=== PATIENT | male | born 1960 | race American Indian/Alaskan Native ===

== ENCOUNTER 2016-10-27 17:22 | Emergency (ER) | payer SELFPAY ==
[2016-10-27 18:35] LABS: Basophils % (Auto) 0.8 % (0.0-1.8); Eosinophils % (Auto) 1.5 % (0.0-4.3); Hematocrit 45.9 % (35.5-45.6); Hemoglobin 15.1 gm/dl (11.8-15.2); Mean Corpuscular HGB Conc 33 % (32-34); Mean Corpuscular Hemoglobin 33 pg (28-32); Mean Corpuscular Volume 99 fl (84-94); Platelet Count 261 K/mm3 (140-440); Red Blood Count 4.66 M/mm3 (3.65-5.03); Red Cell Distribution Width 13.5 % (13.2-15.2); White Blood Count 10.7 K/mm3 (4.5-11.0)
[2016-10-27 18:55] LABS: Anion Gap 20 mmol/L; BUN/Creatinine Ratio 17.27; Blood Urea Nitrogen 19 mg/dL (9-20); Calcium 9.8 mg/dL (8.4-10.2); Carbon Dioxide 29 mmol/L (22-30); Chloride 99.5 mmol/L (98-107); Glucose 118 mg/dL (75-100); Potassium 4.6 mmol/L (3.6-5.0); Sodium 144 mmol/L (137-145)
[2016-10-27] MEDS ORDERED: APRESOLINE PO ONE (21:41)
--- NOTE | 2016-10-27 21:47 | Emergency Department Report ---
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 , pt denies symptoms, no headache no dizziness no lightheadedness no cp no sob, last bp meds 3 days ago Onset/Timin (chronic htn) -: year(s) Improves with: other (hctz, lopressor, asa, lisinopril) - Related Data Home Medications Medication Instructions Recorded Confirmed Last Taken Aspirin [Adult Low Dose Aspirin EC] 81 mg PO DAILY 10/27/16 10/27/16 3 Days Ago Hydrochlorothiazide [HCTZ] 25 mg PO QDAY 10/27/16 10/27/16 3 Days Ago Lisinopril [Zestril TAB] 10 mg PO QDAY 10/27/16 10/27/16 3 Days Ago Metoprolol [Lopressor] 25 mg PO BID 10/27/16 10/27/16 3 Days Ago Allergies Allergy/AdvReac Type Severity Reaction Status Date / Time No Known Allergies Allergy Verified 10/27/16 18:18 ED Review of Systems ROS: Stated complaint: HBP Other details as noted in HPI Constitutional: denies: chills, fever Eyes: denies: eye pain, eye discharge, vision change ENT: denies: ear pain, throat pain Respiratory: denies: cough, shortness of breath, wheezing Cardiovascular: denies: chest pain, palpitations, dyspnea on exertion, orthopnea , edema, syncope, paroxysmal nocturnal dyspnea Endocrine: no symptoms reported Gastrointestinal: denies: abdominal pain, nausea, diarrhea Genitourinary: denies: urgency, dysuria Musculoskeletal: denies: back pain, joint swelling, arthralgia Skin: denies: rash, lesions Neurological: denies: headache, weakness, paresthesias Psychiatric: denies: anxiety, depression Hematological/Lymphatic: denies: easy bleeding, easy bruising ED Past Medical Hx - Past Medical History Previous Medical History?: Yes Hx Hypertension: Yes - Surgical History Past Surgical History?: No Additional Surgical History: appendectomy, hip replacement - Social History Smoking Status: Current Some Day Smoker Substance Use Type: Alcohol - Medications Home Medications: Home Medications Medication Instructions Recorded Confirmed Last Taken Type Aspirin [Adult Low Dose Aspirin EC] 81 mg PO DAILY 10/27/16 10/27/16 3 Days Ago History Hydrochlorothiazide [HCTZ] 25 mg PO QDAY 10/27/16 10/27/16 3 Days Ago History Lisinopril [Zestril TAB] 10 mg PO QDAY 10/27/16 10/27/16 3 Days Ago History Metoprolol [Lopressor] 25 mg PO BID 10/27/16 10/27/16 3 Days Ago History ED Physical Exam - General Limitations: No Limitations General appearance: alert, in no apparent distress - Head Head exam: Present: atraumatic, normocephalic - Eye Eye exam: Present: normal appearance, PERRL, EOMI Pupils: Present: normal accommodation - ENT ENT exam: Present: mucous membranes moist - Neck Neck exam: Present: normal inspection - Respiratory Respiratory exam: Present: normal lung sounds bilaterally. Absent: respiratory distress, wheezes, rhonchi, stridor, chest wall tenderness, decreased breath sounds - Cardiovascular Cardiovascular Exam: Present: regular rate, normal rhythm, normal heart sounds. Absent: systolic murmur, diastolic murmur, rubs, gallop, clicks, JVD - GI/Abdominal GI/Abdominal exam: Present: soft, normal bowel sounds. Absent: tenderness, guarding, rebound, bruit, hernia - Rectal Rectal exam: Present: deferred - Extremities Exam Extremities exam: Present: normal inspection, full ROM. Absent: tenderness, normal capillary refill, pedal edema, joint swelling, calf tenderness - Back Exam Back exam: Present: normal inspection, full ROM, tenderness. Absent: CVA tenderness (R), CVA tenderness (L) - Neurological Exam Neurological exam: Present: alert, oriented X3, CN II-XII intact, normal gait, reflexes normal - Psychiatric Psychiatric exam: Present: normal affect, normal mood - Skin Skin exam: Present: warm, dry, intact, normal color. Absent: cyanosis, diaphoretic, pallor ED Course Vital Signs 10/27/16 10/27/16 10/27/16 18:10 21:32 21:54 Temperature 98.1 F Pulse Rate 79 77 Respiratory 16 20 Rate Blood Pressure 186/111 181/103 Blood Pressure 181/103 [Right] O2 Sat by Pulse 94 94 Oximetry ED Medical Decision Making - Lab Data Result diagrams: 10/27/16 18:24 10/27/16 18:24 Laboratory Tests 10/27/16 10/27/16 18:24 18:24 WBC 10.7 RBC 4.66 Hgb 15.1 Hct 45.9 H MCV 99 H MCH 33 H MCHC 33 RDW 13.5 Plt Count 261 Lymph % (Auto) 24.9 Leon % (Auto) 10.4 H Eos % (Auto) 1.5 Baso % (Auto) 0.8 Lymph # 2.7 Leon # 1.1 H Eos # 0.2 Baso # 0.1 Seg Neutrophils % 62.4 Seg Neutrophils # 6.7 Sodium 144 Potassium 4.6 Chloride 99.5 Carbon Dioxide 29 Anion Gap 20 BUN 19 Creatinine 1.1 Estimated GFR > 60 BUN/Creatinine Ratio 17.27 Glucose 118 H Calcium 9.8 Troponin T < 0.010 - EKG Data EKG shows normal: sinus rhythm Rate: normal - EKG Data When compared to previous EKG there are: no significant change Interpretation: no acute changes, LVH (no change from EKG 03/2012) - Medical Decision Making pt is a 56 y/o aam with hx of HTN, Obesity former smoker who presents on referral from Office during DOT physical for htn, pt denies symptoms at this time, no headache no dizziness no lightheadedness no cp, no sob pt is ambulatory gait is steady with nad , exam: pt appears obese , stated age, with nad lungs clear bilat all lobes no wheezing no CAVANAUGH, cv: S1 and S2 no MRG no PND no edema, no jvd diagnostics : SR with LVH at baseline of 03/2012, CMP: Cr: 1.1 , CBC: wnl, Trop: 0.010 N. [place] Heart Score: 3 low risk, plan: Hydralazine 50 mg po x 1, repeat bp, if bp reduced , will dc to home pt advises that he has all medications in his possession at home, pt has good follow up at [facility], will follow up in 1 week with Primary Care Doctor, pt given strict instructions to return to emergency if symptoms occur , worsen, or cp or sob develops pt verbalized understanding and agreement with discharge plan. BP currently trending downward pt denies symptoms currently a/o x 3 ambulatory gait steady pt will follow up with primary care as directed at [place] , take all medications as rx for bp , take medications upon arrival to home tonight, pt verabalized agreement and understanding of discharge plan. Critical care attestation.: If time is entered above; I have spent that time in minutes in the direct care of this critically ill patient, excluding procedure time. ED Disposition Clinical Impression: HTN (hypertension) Qualifiers: Hypertension type: essential hypertension Qualified Code(s): I10 - Essential ( primary) hypertension Disposition: - TO HOME OR SELFCARE Is pt being admited?: No Does the pt Need Aspirin: No Condition: Good Instructions: Hypertension (ED) Referrals: PRIMARY CARE, [Primary Care Provider] - 3-5 Days Forms: Work/School Release Form(ED) Time of Disposition: 22:14
[2016-10-27 22:30] VITALS: BP 133/94
== END 2016-10-27 22:30 | disposition home or self-care (01) ==
LOC: ED 17:22
DX: I10 Essential (primary) hypertension (principal); F17.200 Nicotine dependence, unspecified, uncomplicated; Z79.82 Long term (current) use of aspirin; Z98.890 Other specified postprocedural states
CPT/HCPCS: 36415; 80048; 84484; 85025; 93005; 93010; 99284

== ENCOUNTER 2017-02-10 08:42 | Inpatient (IN) | payer OTHER ==
[2017-02-10 09:22] LABS: Basophils % (Auto) 1.2 % (0.0-1.8); Eosinophils % (Auto) 1.7 % (0.0-4.3); Hematocrit 43.3 % (35.5-45.6); Hemoglobin 14.7 gm/dl (11.8-15.2); Mean Corpuscular HGB Conc 34 % (32-34); Mean Corpuscular Hemoglobin 33 pg (28-32); Mean Corpuscular Volume 98 fl (84-94); Platelet Count 245 K/mm3 (140-440); Red Blood Count 4.42 M/mm3 (3.65-5.03); Red Cell Distribution Width 13.2 % (13.2-15.2); White Blood Count 7.4 K/mm3 (4.5-11.0)
[2017-02-10 09:32] LABS: INR 0.91 (0.87-1.13)
[2017-02-10 09:33] LABS: Partial Thromboplastin Time 25.9 Sec. (24.2-36.6)
[2017-02-10 09:41] LABS: Anion Gap 19 mmol/L; Blood Urea Nitrogen 14 mg/dL (9-20); Calcium 8.8 mg/dL (8.4-10.2); Carbon Dioxide 28 mmol/L (22-30); Glucose 99 mg/dL (75-100); Sodium 144 mmol/L (137-145)
--- NOTE | 2017-02-10 10:25 | XRay Report ---
CHEST TWO VIEWS: 02/10/17 08:42:00 CLINICAL: Shortness of breath. COMPARISON: 09/08/11 FINDINGS: The heart is large. Mild central vascular congestion. Mild bilateral basal interstitial opacities. No pulmonary consolidation. No pleural effusion. Degenerative change in the spine. IMPRESSION: Mild CHF.
[2017-02-10] MEDS ORDERED: LOVENOX SUB-Q ONE (10:26)
--- NOTE | 2017-02-10 10:27 | Emergency Department Report ---
ED General Adult HPI - General Chief complaint: Dyspnea/Respdistress Stated complaint: MARCO A Time Seen by Provider: 02/10/17 10:10 Source: patient, RN notes reviewed Mode of arrival: Ambulatory Limitations: No Limitations - History of Present Illness Initial comments: This is a 56-year-old male who was previously unknown to this provider. He has a past medical history of hypertension. He presents to the ER with shortness of breath, contrary to what is documented in triage nurse documentation, he has no chest pain. Patient endorses chronic lower extremity swelling which is not a new, worsening or different, he has chronic orthopnea which is not new worsened or different. There is no hematemesis or bright red blood per rectum, no recent trips greater than 4 hours, no recent hospital admissions. Patient does admit to going on an alcohol binge last week, he is currently not homicidal or suicidal. -: Gradual Severity scale (0 -10): 0 Consistency: constant Improves with: rest Worsens with: movement Associated Symptoms: loss of appetite, weakness. denies: chest pain - Related Data Home Medications Medication Instructions Recorded Confirmed Last Taken Aspirin [Adult Low Dose Aspirin EC] 81 mg PO DAILY 10/27/16 10/27/16 3 Days Ago Hydrochlorothiazide [HCTZ] 25 mg PO QDAY 10/27/16 10/27/16 3 Days Ago Lisinopril [Zestril TAB] 10 mg PO QDAY 10/27/16 10/27/16 3 Days Ago Metoprolol [Lopressor] 25 mg PO BID 10/27/16 10/27/16 3 Days Ago Allergies Allergy/AdvReac Type Severity Reaction Status Date / Time No Known Allergies Allergy Verified 02/10/17 10:28 ED Review of Systems ROS: Stated complaint: MARCO A Other details as noted in HPI Constitutional: malaise, weakness Eyes: denies: vision change Respiratory: shortness of breath Cardiovascular: edema Gastrointestinal: denies: vomiting, hematemesis, melena, hematochezia Genitourinary: denies: dysuria Musculoskeletal: arthralgia, myalgia Skin: denies: lesions Neurological: weakness Psychiatric: denies: homicidal thoughts, suicidal thoughts ED Past Medical Hx - Past Medical History Previous Medical History?: Yes Hx Hypertension: Yes - Surgical History Past Surgical History?: Yes Hx Appendectomy: Yes Additional Surgical History: appendectomy, hilario hip replacement - Social History Smoking Status: Current Every Day Smoker Substance Use Type: Alcohol, Prescribed - Medications Home Medications: Home Medications Medication Instructions Recorded Confirmed Last Taken Type Aspirin [Adult Low Dose Aspirin EC] 81 mg PO DAILY 10/27/16 10/27/16 3 Days Ago History Hydrochlorothiazide [HCTZ] 25 mg PO QDAY 10/27/16 10/27/16 3 Days Ago History Lisinopril [Zestril TAB] 10 mg PO QDAY 10/27/16 10/27/16 3 Days Ago History Metoprolol [Lopressor] 25 mg PO BID 10/27/16 10/27/16 3 Days Ago History ED Physical Exam - General Limitations: No Limitations General appearance: alert, in no apparent distress - Head Head exam: Present: atraumatic, normocephalic - Eye Eye exam: Present: normal appearance, EOMI - ENT ENT exam: Present: normal exam, normal orophraynx, mucous membranes moist, normal external ear exam - Neck Neck exam: Present: normal inspection, full ROM - Respiratory Respiratory exam: Present: normal lung sounds bilaterally. Absent: respiratory distress, wheezes, rales, rhonchi, stridor - Cardiovascular Cardiovascular Exam: Present: tachycardia, irregular rhythm. Absent: systolic murmur, diastolic murmur, rubs, gallop - GI/Abdominal GI/Abdominal exam: Present: soft, normal bowel sounds. Absent: distended, tenderness, guarding, rebound, rigid, pulsatile mass - Rectal Rectal exam: Present: deferred - Extremities Exam Extremities exam: Present: normal inspection, normal capillary refill, pedal edema. Absent: calf tenderness - Back Exam Back exam: Present: normal inspection. Absent: full ROM, tenderness - Neurological Exam Neurological exam: Present: alert, oriented X3, normal gait, other (Extraocular movements intact. Tongue midline. No facial droop. Facial sensation intact to light touch in the V1, V2, V3 distribution bilaterally. 5 and 5 strength in 4 extremities.. Sensation is intact to light touch in 4 extremities.). Absent : motor sensory deficit - Psychiatric Psychiatric exam: Present: normal affect, normal mood - Skin Skin exam: Present: warm, dry, intact, normal color. Absent: rash ED Course Vital Signs 02/10/17 02/10/17 02/10/17 08:53 09:30 10:05 Temperature 97.5 F L Pulse Rate 66 64 139 H Respiratory 18 20 27 H Rate Blood Pressure 153/87 O2 Sat by Pulse 94 94 Oximetry 02/10/17 02/10/17 02/10/17 10:16 10:30 10:46 Temperature Pulse Rate 152 H 116 H 118 H Respiratory 15 19 21 Rate Blood Pressure 140/107 140/107 167/94 O2 Sat by Pulse 96 91 93 Oximetry 02/10/17 02/10/17 02/10/17 11:00 11:16 11:18 Temperature Pulse Rate 158 H 126 H 150 H Respiratory 18 17 Rate Blood Pressure 167/94 176/126 177/112 O2 Sat by Pulse 97 91 Oximetry 02/10/17 02/10/17 02/10/17 11:30 11:46 12:10 Temperature Pulse Rate 88 102 H 101 H Respiratory 13 16 Rate Blood Pressure 139/85 177/112 190/96 O2 Sat by Pulse 96 91 Oximetry 02/10/17 12:24 Temperature Pulse Rate Respiratory 24 Rate Blood Pressure O2 Sat by Pulse 95 Oximetry ED Medical Decision Making - Lab Data Result diagrams: 02/10/17 09:05 02/10/17 09:05 Vital Signs 02/10/17 02/10/17 08:53 09:30 Temperature 97.5 F L Pulse Rate 66 64 Respiratory 18 20 Rate Blood Pressure 153/87 O2 Sat by Pulse 94 94 Oximetry Lab Results 02/10/17 02/10/17 02/10/17 Range/Units 09:05 09:05 09:05 WBC 7.4 (4.5-11.0) K/mm3 RBC 4.42 (3.65-5.03) M/mm3 Hgb 14.7 (11.8-15.2) gm/dl Hct 43.3 (35.5-45.6) % MCV 98 H (84-94) fl MCH 33 H (28-32) pg MCHC 34 (32-34) % RDW 13.2 (13.2-15.2) % Plt Count 245 (140-440) K/mm3 Lymph % (Auto) 39.9 H (13.4-35.0) % [place] % (Auto) 9.1 H (0.0-7.3) % Eos % (Auto) 1.7 (0.0-4.3) % Baso % (Auto) 1.2 (0.0-1.8) % Lymph # 3.0 (1.2-5.4) K/mm3 [place] # 0.7 (0.0-0.8) K/mm3 Eos # 0.1 (0.0-0.4) K/mm3 Baso # 0.1 (0.0-0.1) K/mm3 Seg Neutrophils % 48.1 (40.0-70.0) % Seg Neutrophils # 3.6 (1.8-7.7) K/mm3 PT 12.7 (12.2-14.9) Sec. INR 0.91 (0.87-1.13) APTT 25.9 (24.2-36.6) Sec. Sodium 144 (137-145) mmol/L Potassium 4.0 (3.6-5.0) mmol/L Chloride 101.0 (98-107) mmol/L Carbon Dioxide 28 (22-30) mmol/L Anion Gap 19 mmol/L BUN 14 (9-20) mg/dL Creatinine 0.7 L (0.8-1.5) mg/dL Estimated GFR > 60 ml/min BUN/Creatinine Ratio 20.00 % Glucose 99 (75-100) mg/dL Calcium 8.8 (8.4-10.2) mg/dL Magnesium (1.7-2.3) mg/dL Troponin T < 0.010 (0.00-0.029) ng/mL NT-Pro-B Natriuret Pep (0-900) pg/mL 02/10/17 02/10/17 Range/Units 09:05 10:38 WBC (4.5-11.0) K/mm3 RBC (3.65-5.03) M/mm3 Hgb (11.8-15.2) gm/dl Hct (35.5-45.6) % MCV (84-94) fl MCH (28-32) pg MCHC (32-34) % RDW (13.2-15.2) % Plt Count (140-440) K/mm3 Lymph % (Auto) (13.4-35.0) % [place] % (Auto) (0.0-7.3) % Eos % (Auto) (0.0-4.3) % Baso % (Auto) (0.0-1.8) % Lymph # (1.2-5.4) K/mm3 [place] # (0.0-0.8) K/mm3 Eos # (0.0-0.4) K/mm3 Baso # (0.0-0.1) K/mm3 Seg Neutrophils % (40.0-70.0) % Seg Neutrophils # (1.8-7.7) K/mm3 PT (12.2-14.9) Sec. INR (0.87-1.13) APTT (24.2-36.6) Sec. Sodium (137-145) mmol/L Potassium (3.6-5.0) mmol/L Chloride (98-107) mmol/L Carbon Dioxide (22-30) mmol/L Anion Gap mmol/L BUN (9-20) mg/dL Creatinine (0.8-1.5) mg/dL Estimated GFR ml/min BUN/Creatinine Ratio % Glucose (75-100) mg/dL Calcium (8.4-10.2) mg/dL Magnesium 1.80 (1.7-2.3) mg/dL Troponin T (0.00-0.029) ng/mL NT-Pro-B Natriuret Pep 302.4 (0-900) pg/mL - EKG Data -: EKG Interpreted by N[place] - EKG Data 02/10/17 12:00 EKG #1 demonstrates A. fib with RVR, 111 bpm, left bundle branch block, not morphologically consistent with STEMI. Repeat EKG after diltiazem demonstrates a flutter, variable conduction, borderline left axis, persistent left bundle branch block, not morphologically consistent with STEMI. - Radiology Data Radiology results: report reviewed, image reviewed X-ray of the chest demonstrates cardiomegaly, mild pulmonary vascular congestion , possible early CHF - Medical Decision Making Differential diagnosis: Atrial flutter, atrial fibrillation, congestive heart failure, pulmonary hypertension, obstructive sleep apnea Assessment and plan: 56-year-old male, obese, chronic orthopnea, most likely has undiagnosed pulmonary hypertension, obstructive sleep apnea, obesity hypoventilation syndrome, went on an alcohol binge last week, now with new- onset A. fib/flutter. Rate initially variable from 111 to 150s, he is given 15 mg of diltiazem IV, successfully slowed his rate, then 30 mg by mouth. He is given Lovenox 1 mg/kg subcutaneously, Lasix, there are no pulmonary embolus or DVT risk factors and he is low risk by well's criteria, he indicates no contraindications to systemic anticoagulation. Case discussed with the hospital physician electronic parts designer, Dr. Johnathan Ureña, and cardiology on-call, Dr. Roxana Fierro, who agreed to admit the patient and consult on the patient respectively. Each of the aforementioned physicians at the patient's labs, EKG, radiology and physical exam findings related to them. Critical care attestation.: If time is entered above; I have spent that time in minutes in the direct care of this critically ill patient, excluding procedure time. ED Disposition Clinical Impression: Rapid atrial fibrillation Disposition: OP ADMIT IP TO THIS HOSP Is pt being admited?: Yes Condition: Good
[2017-02-10] MEDS ORDERED: LASIX IV ONE (10:48)
[2017-02-10] MEDS ORDERED: CARDIZEM IV ONE (11:16)
[2017-02-10] MEDS ORDERED: CARDIZEM PO ONE (11:31)
--- NOTE | 2017-02-10 11:58 | History and Physical Report ---
History of Present Illness Date of examination: 02/10/17 Date of admission: 02/10/17 History of present illness: 56-year-old morbidly obese male patient with significant past medical history of hypertension presented to the emergency room with worsening shortness of breath not feeling well and palpitations Patient denies chest pain Also complains of worsening leg edema, has orthopnea denies paroxysmal nocturnal dyspnea Had some relationship problems and is depressed but denies suicidal thoughts or ideation, admits to binge drinking and reports that he has no alcohol dependence problems Initial workup is consistent with A. fib with rapid ventricular rate Denies nausea or vomiting or abdominal pain, denies headache dizziness weakness or numbness Chest x-ray show mild congestive heart failure Past History Past Medical History: hypertension. denies: diabetes Past Surgical History: appendectomy, total hip replacement Social history: lives with family, smoking ( half -1 pack per day for many years ), alcohol abuse, full code. denies: prescription drug abuse Family history: hypertension Medications and Allergies Allergies Allergy/AdvReac Type Severity Reaction Status Date / Time No Known Allergies Allergy Verified 02/10/17 10:28 Home Medications Medication Instructions Recorded Confirmed Last Taken Type Aspirin [Adult Low Dose Aspirin EC] 81 mg PO DAILY 10/27/16 10/27/16 3 Days Ago History Hydrochlorothiazide [HCTZ] 25 mg PO QDAY 10/27/16 10/27/16 3 Days Ago History Lisinopril [Zestril TAB] 10 mg PO QDAY 10/27/16 10/27/16 3 Days Ago History Metoprolol [Lopressor] 25 mg PO BID 10/27/16 10/27/16 3 Days Ago History Review of Systems Constitutional: fatigue, no weight loss, no weight gain, no fever, no chills Ears, nose, mouth and throat: no nasal congestion, no nasal discharge Cardiovascular: chest pain, orthopnea, palpitations, rapid/irregular heart beat , shortness of breath, no syncope, no lightheadedness Respiratory: shortness of breath, no cough with sputum, no hemoptysis Gastrointestinal: no abdominal pain, no nausea, no vomiting Genitourinary Male: no dysuria, no hematuria Musculoskeletal: no myalgias, no arthritis Integumentary: no rash, no lesions Neurological: no paralysis, no seizures Psychiatric: no anxiety, no depression Endocrine: no cold intolerance, no heat intolerance Hematologic/Lymphatic: no easy bruising, no easy bleeding Allergic/Immunologic: no urticaria, no allergic rhinitis Exam - Constitutional Vitals: Temp Pulse Resp BP Pulse Ox 97.5 F L 64 20 153/87 94 02/10/17 08:53 02/10/17 09:30 02/10/17 09:30 02/10/17 08:53 02/10/17 09:30 General appearance: Present: mild distress, obese (morbidly obese) - EENT Eyes: Present: PERRL, EOM intact - Neck Neck: Present: supple, normal ROM - Respiratory Respiratory effort: normal Respiratory: bilateral: diminished, rales, negative: rhonchi, wheezing - Cardiovascular Rhythm: irregularly irregular Heart Sounds: Present: S1 & S2 (A. fib with rapid ventricular rate) - Extremities Extremities: no ischemia Extremity abnormal: edema - Abdominal General gastrointestinal: Present: soft, non-tender, non-distended, normal bowel sounds Male genitourinary: Present: deferred - Rectal Rectal Exam: deferred - Integumentary Integumentary: Present: clear, warm - Musculoskeletal Musculoskeletal: strength equal bilaterally - Psychiatric Psychiatric: appropriate mood/affect, cooperative - Neurologic Neurologic: CNII-XII intact, moves all extremities Results - Labs CBC & Chem 7: 02/10/17 09:05 02/10/17 09:05 Labs: Abnormal lab results 02/10/17 02/10/17 Range/Units 09:05 09:05 MCV 98 H (84-94) fl MCH 33 H (28-32) pg Lymph % (Auto) 39.9 H (13.4-35.0) % [place] % (Auto) 9.1 H (0.0-7.3) % Creatinine 0.7 L (0.8-1.5) mg/dL Assessment and Plan --Atrial fibrillation with rapid ventricular rate Cardizem drip per protocol, beta blockers, supportive care Echocardiogram for left ventricle function ejection fraction, cardiology evaluation --Chronic anticoagulation; patient has high chads2 score, anticoagulated with full dose Lovenox Closely monitor, we'll discharge him on oral anticoagulants --Accelerated hypertension; managed with Cardizem, beta blockers, lisinopril and hydrochlorothiazide When necessary hydralazine --Ongoing tobacco use; smoking cessation counseling done, advised nicotine patch --Alcohol abuse; counseling done patient is strongly advised to quit alcohol intake Closely monitor for any alcohol withdrawal symptoms, Ativan as needed, CIWA protocol and as needed --DVT prophylaxis; patient is already on full dose Lovenox --Morbid obesity; counseling done patient strongly advised her to modification, exercise as tolerated and weight reduction when medically stable Patient may benefit by outpatient bariatric surgical evaluation for weight reduction program in medically stable Follow-up cardiology evaluation and recommendations Critical care time 32 minutes The high probability of a clinically significant, sudden or life threatening deterioration of the [hemodynamic, cardiovascular] system(s) required my full and direct attention, intervention and personal management. The aggregate critical care time was [32] minutes. This time is in addition to time spent performing reported procedures but includes the following: [x] Data Review and interpretation [x] Patient assessment and monitoring of vital signs [x] Documentation [x] Medication orders and management
[2017-02-10 12:57] LABS: Creatine Kinase MB 2.9 ng/mL (0.0-4.0)
[2017-02-10 12:58] LABS: Creatine Kinase 124 units/L (55-170)
[2017-02-10] MEDS ORDERED: CARDIZEM IV STA (16:22)
--- NOTE | 2017-02-10 16:50 | Consultation ---
History of Present Illness Consult date: 02/10/17 Medications and Allergies Allergies Allergy/AdvReac Type Severity Reaction Status Date / Time No Known Allergies Allergy Verified 02/10/17 10:28 Home Medications Medication Instructions Recorded Confirmed Last Taken Type Aspirin [Adult Low Dose Aspirin EC] 81 mg PO DAILY 10/27/16 10/27/16 3 Days Ago History Hydrochlorothiazide [HCTZ] 25 mg PO QDAY 10/27/16 10/27/16 3 Days Ago History Lisinopril [Zestril TAB] 10 mg PO QDAY 10/27/16 10/27/16 3 Days Ago History Metoprolol [Lopressor] 25 mg PO BID 10/27/16 10/27/16 3 Days Ago History Active Meds: Active Medications Aspirin (Halfprin Ec) 81 mg PO DAILY KIMBERLY Chlorthalidone (Thalitone) 25 mg PO QDAY KIMBERLY Enoxaparin Sodium (Lovenox) 100 mg SUB-Q Q12HR KIMBERLY Furosemide (Lasix) 20 mg IV 0600,1800 KIMBERLY Diltiazem HCl (Cardizem/D5w 100mg/100ml) 100 mg in 100 mls @ 10 mls/hr IV DIRECT KIMBERLY; 10 MG/HR PRN Reason: Protocol Lisinopril (Zestril) 20 mg PO QDAY KIMBERLY Metoprolol Tartrate (Lopressor) 50 mg PO TID KIMBERLY Physical Examination Vital Signs Temp Pulse Resp BP Pulse Ox 97.5 F L 66 18 153/87 94 02/10/17 08:53 02/10/17 08:53 02/10/17 08:53 02/10/17 08:53 02/10/17 08:53 Results 02/10/17 09:05 02/10/17 09:05 Cardiac Enzymes 02/10/17 Range/Units 12:19 CK-MB (CK-2) 2.9 (0.0-4.0) ng/mL Assessment and Plan Detailed Cardiology consult dictated.
[2017-02-10] MEDS ORDERED: CARDIZEM/D5W 100MG/100ML 100 MG/100 ML BAG IV SCH (17:00)
[2017-02-10] MEDS: LASIX IV SCH (17:30)
[2017-02-10] MEDS: XANAX PO PRN (17:30)
[2017-02-10] MEDS: CARDIZEM/D5W 100MG/100ML 100 MG/100 ML BAG IV SCH (17:48)
[2017-02-10] MEDS: LOPRESSOR PO SCH (20:20)
[2017-02-10] MEDS ORDERED: LOVENOX SUB-Q SCH (22:00)
[2017-02-10] MEDS ORDERED: LOPRESSOR PO SCH (22:00)
[2017-02-10] MEDS: LOVENOX SUB-Q SCH (22:39)
--- NOTE | 2017-02-11 05:51 | Consultation ---
AGE: 56. SEX: Male. REFERRING PHYSICIAN: Shaina Eddy MD, hospitalist. Thanks for this consult. HISTORY OF PRESENT ILLNESS: A 56-year-old morbidly obese (BMI of 40.5) pleasant -[place] gentleman with a history of hypertension, hyperlipidemia, chronic alcoholic abuse, was admitted with progressive shortness of breath for the past few weeks, more marked for the past 2 days. He also gives a history of gross swelling of both lower extremities, which he first noticed about 2 years ago. It has been intermittent, waxing and waning for the past several months. It has become more marked for the past 2 days. He did not have any chest pain. He also gives history or orthopnea. He gives history of palpitations. No history of dizziness or syncope. He was found to be in atrial fibrillation with rapid ventricular response and he received intravenous Cardizem bolus. He was placed on beta-blockers and also he was placed on Lovenox. The age of atrial fibrillation is not clear. It is presumably of new onset. No history of diabetes mellitus. His troponins x 2 were negative and myocardial infarction has been ruled out. His rate is still fast (ranging between 135-160 beats per minute) and blood pressure is high (190/86 mmHg). He has received one dose of intravenous furosemide in the Emergency Room. Chest x-ray 2 views revealed mild congestive heart failure. His proBNP is 302. PAST MEDICAL HISTORY: History of hypertension and hyperlipidemia. Apparently had irregular heart rhythm in the past and further details are not known at this time. He has history of chronic swelling of both legs and feet, and chronic skin changes in the lower extremities. He has had appendicectomy several years ago. SOCIAL HISTORY: He is not a smoker. No history of drug abuse. However, he gives history of chronic alcoholic abuse for several months. He takes at least 6 beers per day and 1 pint of tequila daily. FAMILY HISTORY: His father of myocardial infarction at age of 52. Further details are not known at this time. Apparently, he had a stroke also. The patient gives history of obstructive sleep apnea (diagnosed by sleep studies in the past), but he is not using CPAP. He also had bilateral hip replacement surgery in the past (1994 and 1995). No history of CAD or TX in the past. ALLERGIES: None known. MEDICATIONS AT HOME: HCTZ 25 mg p.o. daily, lisinopril 10 mg p.o. daily, metoprolol 25 mg p.o. b.i.d. Here, he was placed on Lovenox 140 mg subcutaneous b.i.d. and also beta-blockers are being continued. REVIEW OF SYSTEMS: CARDIOVASCULAR: As described in the history. PULMONARY: As described in the history. METABOLISM AND ENDOCRINOLOGY: As described in the history. BONE AND JOINTS: As described in the history. GENITOURINARY: As described in the history. Review of rest of the 10 systems is negative. PHYSICAL EXAMINATION: GENERAL: A 56-year-old morbidly obese, pleasant -[place] gentleman and he developed shortness of breath even on mild exertion. VITAL SIGNS: Pulse 110 per minute, irregularly irregular rhythm, blood pressure 190/96 mmHg, respirations 22 per minute. NEUROLOGIC: He is alert and oriented x 3. HEENT: Negative. NECK: Supple, no JVD, no bruit, no thyromegaly. HEART: PMI could not be felt. No palpable thrills. Auscultation of heart reveals S1, S2 heard. Rapid, irregularly irregular rhythm. No murmur or rub is appreciated. EXTREMITIES: Peripheral pulses could not be felt because of gross edema. He has bilateral chronic 2+ edema which is chronic, skin changes in both legs and feet. LUNGS: Decreased air entry over the bases. No bronchial breathing, no wheezing. ABDOMEN: Soft, benign, morbid obesity present. SKIN: As described above. BONE AND JOINTS: Negative. LABORATORY DATA: Potassium 4.0. Serum magnesium level normal (1.8). Troponins as described in the history. ProBNP as described in the history. Chest x-ray findings as described in the history. EKG done at 8:47 a.m. today: Atrial fibrillation with fast ventricular response of 111 per minute, nonspecific intraventricular conduction delay and possible inferolateral ischemia. IMPRESSION: 1. Acute congestive heart failure (whether it is systolic or diastolic or a combination of both will be known after reviewing the echocardiogram). 2. Atrial fibrillation with rapid ventricular response. 3. History of progressive dyspnea and palpitations. 4. History of hypertension and hyperlipidemia. 5. History of obstructive sleep apnea (not on CPAP). 6. History of bilateral hip replacement in the past. 7. Morbid obesity. 8. Family history of premature coronary artery disease. RECOMMENDATIONS: We will discontinue HCTZ and place him on chlorthalidone 25 mg p.o. daily. We will decrease Lovenox dose to 100 mg subcutaneous b.i.d. We will place him on furosemide 20 mg IV b.i.d. We will increase lisinopril to 20 mg p.o. daily and metoprolol to 50 mg p.o. t.i.d. We would also give him diltiazem [address] bol[address] and place him on 10 mg diltiazem infusion. Salt and fluid restriction is stressed. I have ordered for an echocardiogram and it will be followed up. Further recommendations will follow. Thank you again. Yours sincerely, JOB# [id number] MARÍA/KORTNEY
[2017-02-11] MEDS: LASIX IV SCH (06:16)
[2017-02-11] MEDS: CARDIZEM/D5W 100MG/100ML 100 MG/100 ML BAG IV SCH (06:46)
[2017-02-11 09:06] LABS: Alanine Aminotransferase 26 units/L (7-56); Albumin 3.6 g/dL (3.9-5); Alkaline Phosphatase 112 units/L (35-129); Anion Gap 16 mmol/L; BUN/Creatinine Ratio 21.81; Blood Urea Nitrogen 24 mg/dL (9-20); Calcium 9.6 mg/dL (8.4-10.2); Carbon Dioxide 34 mmol/L (22-30); Chloride 98.7 mmol/L (98-107); Cholesterol 232 mg/dL (50-199); Glucose 118 mg/dL (75-100); HDL Cholesterol 90 mg/dL (40-59); LDL Cholesterol,Direct 110 mg/dL (50-130); Potassium 3.4 mmol/L (3.6-5.0); Sodium 145 mmol/L (137-145); Total Protein 7.3 g/dL (6.3-8.2); Triglycerides 164 mg/dL (2-149)
[2017-02-11] MEDS: LOPRESSOR PO SCH ×3 (09:10→20:30)
[2017-02-11] MEDS: HALFPRIN EC PO SCH (09:11)
[2017-02-11] MEDS: LOVENOX SUB-Q SCH ×2 (09:12→23:11)
[2017-02-11] MEDS: THALITONE PO SCH (09:12)
[2017-02-11] MEDS: K-DUR PO SCH (09:12)
[2017-02-11] MEDS ORDERED: ZESTRIL PO SCH ×2 (10:00)
[2017-02-11] MEDS ORDERED: HCTZ PO SCH (10:00)
[2017-02-11] MEDS ORDERED: K-DUR PO STA (13:59)
[2017-02-11] MEDS ORDERED: ATIVAN IV PRN (14:13)
--- NOTE | 2017-02-11 15:23 | Progress Note ---
Assessment and Plan Echocardiogram findings were explained to the patient. I discontinued intravenous Lasix and placed him on by mouth Lasix. I ordered potassium supplements. He will go for Emma nuclear stress scan in A.m. for further cardiac evaluation. Beta blockers will be continued. - Patient Problems (1) Acute CHF (congestive heart failure) Current Visit: Yes Status: Acute Qualifiers: Congestive heart failure type: C (2) Palpitations Current Visit: Yes Status: Acute (3) Dyspnea Current Visit: Yes Status: Acute Qualifiers: Dyspnea type: D (4) Hypertension Current Visit: Yes Status: Chronic Qualifiers: Hypertension type: H (5) Hyperlipidemia Current Visit: Yes Status: Chronic Qualifiers: Hyperlipidemia type: H (6) Morbid obesity with BMI of 40.0-44.9, adult Current Visit: Yes Status: Chronic (7) Family history of ischemic heart disease and other diseases of the circulatory system Current Visit: Yes Status: Chronic Subjective Date of service: 02/11/17 Interval history: Patient has clinically improved. His shortness of breath is much less. He got converted to normal sinus rhythm. His potassium is 3.4.BUN is 24 with Cr of 1.1. His LDL is 110 triglycerides 164 and HDL of 90. Echocardiogram revealed mild concentric Hypertrophy, normal left ventricular systolic function with the LVEF of 55-60%, no significant valvular lesions,and no pericardial effusion. Objective Vital Signs Temp Pulse Resp BP BP Pulse Ox 02/11/17 15:12 72 175/110 02/11/17 09:12 74 154/95 02/11/17 09:10 74 154/95 02/11/17 09:05 97.5 F L 74 18 154/95 92 02/11/17 04:41 70 02/11/17 04:21 97.9 F 69 21 153/102 97 02/11/17 00:19 97.9 F 77 22 143/104 97 02/10/17 20:41 137 H 02/10/17 20:20 89 143/88 02/10/17 19:39 97.8 F 89 20 143/88 02/10/17 19:20 97.9 F 89 18 143/88 98 02/10/17 17:48 79 149/82 02/10/17 17:30 98.0 F 130 H 20 150/125 96 02/10/17 16:51 131 H 150/125 - Physical Examination General: Other (morbidly obese) HEENT: Positive: PERRL, Normocephaly Neck: Positive: neck supple, trachea midline. Negative: JVD/HJR Cardiac: Positive: Reg Rate and Rhythm, Other (loud S2) Lungs: Positive: clear to auscultation, Normal Breath Sounds, No Wheeze, Rales, Rhonchi Neuro: Positive: Grossly Intact Abdomen: Positive: Soft, Active Bowel Sounds Skin: Positive: Other (Dry scaly skin - botj legs.) Musculoskeletal: No Fluid Collection, No Pain Extremities: Present: +1 Edema (chronic), Other (chronic skin changes.) - Labs and Meds Cardiac Enzymes 02/11/17 Range/Units 07:04 AST 19 (5-40) units/L Lipids 02/11/17 Range/Units 07:04 Triglycerides 164 H (2-149) mg/dL Cholesterol 232 H (50-199) mg/dL HDL Cholesterol 90 H (40-59) mg/dL Cholesterol/HDL Ratio 2.57 % Comprehensive Metabolic Panel 02/11/17 Range/Units 07:04 Sodium 145 (137-145) mmol/L Potassium 3.4 L (3.6-5.0) mmol/L Chloride 98.7 (98-107) mmol/L Carbon Dioxide 34 H (22-30) mmol/L BUN 24 H (9-20) mg/dL Creatinine 1.1 D (0.8-1.5) mg/dL Glucose 118 H (75-100) mg/dL Calcium 9.6 (8.4-10.2) mg/dL AST 19 (5-40) units/L ALT 26 (7-56) units/L Alkaline Phosphatase 112 (35-129) units/L Total Protein 7.3 (6.3-8.2) g/dL Albumin 3.6 L (3.9-5) g/dL - Imaging and Cardiology EKG: report reviewed, image reviewed Echo: report reviewed, image reviewed - Telemetry EKG Rhythm: Sinus Rhythm - EKG Supraventricular dysrhythmia: atrial fibrillation Repolarization changes or abnormalities: nonspecific abnormality, ST segment, and/or T wave
[2017-02-11] MEDS: APRESOLINE IV PRN ×2 (16:27→19:26)
--- NOTE | 2017-02-11 18:15 | Progress Note ---
Assessment and Plan Assessment and plan: --Atrial fibrillation with rapid ventricular rate/now rate controlled Cardizem drip discontinued, continue beta blockers, supportive care Echocardiogram for left ventricle function ejection fraction 50% --Chronic anticoagulation; patient with full dose Lovenox Closely monitor, we'll discharge him on oral anticoagulants --Accelerated hypertension; managed with Cardizem, beta blockers, lisinopril and hydrochlorothiazide When necessary hydralazine --Ongoing tobacco use; smoking cessation counseling done, advised nicotine patch --Alcohol abuse; counseling done patient is strongly advised to quit alcohol intake Closely monitor for any alcohol withdrawal symptoms, Ativan as needed, CIWA protocol and as needed --DVT prophylaxis; patient is already on full dose Lovenox --Morbid obesity; counseling done patient strongly advised dietary modification , exercise as tolerated and weight reduction when medically stable Patient may benefit by outpatient bariatric surgical evaluation for weight reduction program in medically stable Stress test tomorrow Plan of care discussed with the patient and his History Interval history: Patient seen and examined today Feels slightly better no new complaints, A. fib now rate controlled, off Cardizem drip Patient is on beta blockers, cardiology evaluated the patient Alert awake oriented 3 not in acute distress Hospitalist Physical - Constitutional Vitals: Temp Pulse Resp BP Pulse Ox 98.2 F 71 18 187/108 93 02/11/17 16:06 02/11/17 16:27 02/11/17 16:06 02/11/17 16:27 02/11/17 16:06 General appearance: Present: no acute distress, well-nourished, obese (morbidly obese) - EENT Eyes: Present: PERRL, EOM intact - Neck Neck: Present: supple, normal ROM - Respiratory Respiratory effort: normal Respiratory: bilateral: diminished, negative: rales, rhonchi, wheezing - Cardiovascular Rhythm: regular Heart Sounds: Present: S1 & S2 - Extremities Extremities: no ischemia, No edema, abnormal (chronic venous stasis bilateral lower extremity) Peripheral Pulses: within normal limits - Abdominal General gastrointestinal: soft, non-tender, non-distended, normal bowel sounds - Integumentary Integumentary: Present: clear, warm - Psychiatric Psychiatric: appropriate mood/affect, cooperative - Neurologic Neurologic: CNII-XII intact, moves all extremities Results - Labs CBC & Chem 7: 02/10/17 09:05 02/11/17 07:04 Labs: Laboratory Last Values WBC 7.4 K/mm3 (4.5-11.0) 02/10/17 09:05 RBC 4.42 M/mm3 (3.65-5.03) 02/10/17 09:05 Hgb 14.7 gm/dl (11.8-15.2) 02/10/17 09:05 Hct 43.3 % (35.5-45.6) 02/10/17 09:05 MCV 98 fl (84-94) H 02/10/17 09:05 MCH 33 pg (28-32) H 02/10/17 09:05 MCHC 34 % (32-34) 02/10/17 09:05 RDW 13.2 % (13.2-15.2) 02/10/17 09:05 Plt Count 245 K/mm3 (140-440) 02/10/17 09:05 Lymph % (Auto) 39.9 % (13.4-35.0) H 02/10/17 09:05 Bureau % (Auto) 9.1 % (0.0-7.3) H 02/10/17 09:05 Eos % (Auto) 1.7 % (0.0-4.3) 02/10/17 09:05 Baso % (Auto) 1.2 % (0.0-1.8) 02/10/17 09:05 Lymph # 3.0 K/mm3 (1.2-5.4) 02/10/17 09:05 Bureau # 0.7 K/mm3 (0.0-0.8) 02/10/17 09:05 Eos # 0.1 K/mm3 (0.0-0.4) 02/10/17 09:05 Baso # 0.1 K/mm3 (0.0-0.1) 02/10/17 09:05 Seg Neutrophils % 48.1 % (40.0-70.0) 02/10/17 09:05 Seg Neutrophils # 3.6 K/mm3 (1.8-7.7) 02/10/17 09:05 PT 12.7 Sec. (12.2-14.9) 02/10/17 09:05 INR 0.91 (0.87-1.13) 02/10/17 09:05 APTT 25.9 Sec. (24.2-36.6) 02/10/17 09:05 Sodium 145 mmol/L (137-145) 02/11/17 07:04 Potassium 3.4 mmol/L (3.6-5.0) L 02/11/17 07:04 Chloride 98.7 mmol/L (98-107) 02/11/17 07:04 Carbon Dioxide 34 mmol/L (22-30) H 02/11/17 07:04 Anion Gap 16 mmol/L 02/11/17 07:04 BUN 24 mg/dL (9-20) H 02/11/17 07:04 Creatinine 1.1 mg/dL (0.8-1.5) D 02/11/17 07:04 Estimated GFR > 60 ml/min 02/11/17 07:04 BUN/Creatinine Ratio 21.81 % 02/11/17 07:04 Glucose 118 mg/dL (75-100) H 02/11/17 07:04 Calcium 9.6 mg/dL (8.4-10.2) 02/11/17 07:04 Magnesium 1.80 mg/dL (1.7-2.3) 02/10/17 10:38 Total Bilirubin 1.50 mg/dL (0.1-1.2) H 02/11/17 07:04 AST 19 units/L (5-40) 02/11/17 07:04 ALT 26 units/L (7-56) 02/11/17 07:04 Alkaline Phosphatase 112 units/L (35-129) 02/11/17 07:04 Total Creatine Kinase 124 units/L (55-170) 02/10/17 12:19 CK-MB (CK-2) 2.9 ng/mL (0.0-4.0) 02/10/17 12:19 CK-MB (CK-2) Rel Index 2.3 (0-4) 02/10/17 12:19 Troponin T < 0.010 ng/mL (0.00-0.029) 02/10/17 12:19 NT-Pro-B Natriuret Pep 302.4 pg/mL (0-900) 02/10/17 09:05 Total Protein 7.3 g/dL (6.3-8.2) 02/11/17 07:04 Albumin 3.6 g/dL (3.9-5) L 02/11/17 07:04 Albumin/Globulin Ratio 1.0 % 02/11/17 07:04 Triglycerides 164 mg/dL (2-149) H 02/11/17 07:04 Cholesterol 232 mg/dL (50-199) H 02/11/17 07:04 LDL Cholesterol Direct 110 mg/dL (50-130) 02/11/17 07:04 HDL Cholesterol 90 mg/dL (40-59) H 02/11/17 07:04 Cholesterol/HDL Ratio 2.57 % 02/11/17 07:04
[2017-02-11] MEDS: ZESTRIL PO SCH (23:10)
[2017-02-11] MEDS: XANAX PO PRN (23:11)
[2017-02-12 07:12] LABS: Alanine Aminotransferase 38 units/L (7-56); Albumin 3.3 g/dL (3.9-5); Alkaline Phosphatase 104 units/L (35-129); Anion Gap 15 mmol/L; Blood Urea Nitrogen 20 mg/dL (9-20); Calcium 9.2 mg/dL (8.4-10.2); Carbon Dioxide 29 mmol/L (22-30); Chloride 102.5 mmol/L (98-107); Glucose 115 mg/dL (75-100); Potassium 3.9 mmol/L (3.6-5.0); Sodium 143 mmol/L (137-145); Total Protein 6.7 g/dL (6.3-8.2)
[2017-02-12] MEDS: LOPRESSOR PO SCH ×2 (07:56→13:51)
[2017-02-12] MEDS ORDERED: APRESOLINE IV ONE (08:00)
[2017-02-12] MEDS ORDERED: LASIX PO SCH (10:00)
[2017-02-12] MEDS ORDERED: LEXISCAN IV ONE ×2 (11:26→11:28)
--- NOTE | 2017-02-12 12:12 | Progress Note ---
Assessment and Plan Proceed with lexiscan MPI stress test this AM. Await findings. The patient has been seen in conjunction with Dr. Ellsworth who agrees with the assessment and plan of care. - Patient Problems (1) Acute CHF (congestive heart failure) Current Visit: Yes Status: Acute Qualifiers: Congestive heart failure type: C (2) Palpitations Current Visit: Yes Status: Acute (3) Dyspnea Current Visit: Yes Status: Acute Qualifiers: Dyspnea type: D (4) Hypertension Current Visit: Yes Status: Chronic Qualifiers: Hypertension type: H (5) Hyperlipidemia Current Visit: Yes Status: Chronic Qualifiers: Hyperlipidemia type: H (6) Morbid obesity with BMI of 40.0-44.9, adult Current Visit: Yes Status: Chronic (7) Family history of ischemic heart disease and other diseases of the circulatory system Current Visit: Yes Status: Chronic (8) Transient atrial fibrillation and atrial flutter Current Visit: Yes Status: Acute Subjective Date of service: 02/12/17 Principal diagnosis: HF Interval history: Pt with no complaints, for stress test today. Objective Last Vital Signs Temp 97.5 F L 02/12/17 07:20 Pulse 71 02/12/17 07:57 Resp 18 02/12/17 07:20 BP 190/100 02/12/17 07:57 Pulse Ox 97 02/12/17 07:20 - Physical Examination General: Other (morbidly obese) HEENT: Positive: PERRL, Normocephaly Neck: Positive: neck supple, trachea midline. Negative: JVD/HJR Cardiac: Positive: Reg Rate and Rhythm, S1/S2 Lungs: Positive: clear to auscultation Neuro: Positive: Grossly Intact Abdomen: Positive: Soft, Active Bowel Sounds Skin: Positive: Other (Dry scaly skin - both legs.). Negative: Rash Musculoskeletal: No Pain Extremities: Present: +3 Edema (BLE chronic), Other (chronic skin changes.) - Labs and Meds Cardiac Enzymes 02/12/17 Range/Units 06:29 AST 27 (5-40) units/L Comprehensive Metabolic Panel 02/12/17 Range/Units 06:29 Sodium 143 (137-145) mmol/L Potassium 3.9 (3.6-5.0) mmol/L Chloride 102.5 (98-107) mmol/L Carbon Dioxide 29 (22-30) mmol/L BUN 20 (9-20) mg/dL Creatinine 0.8 (0.8-1.5) mg/dL Glucose 115 H (75-100) mg/dL Calcium 9.2 (8.4-10.2) mg/dL AST 27 (5-40) units/L ALT 38 (7-56) units/L Alkaline Phosphatase 104 (35-129) units/L Total Protein 6.7 (6.3-8.2) g/dL Albumin 3.3 L (3.9-5) g/dL - Imaging and Cardiology EKG: report reviewed, image reviewed Echo: report reviewed, image reviewed - Telemetry EKG Rhythm: Sinus Rhythm Repolarization changes or abnormalities: nonspecific abnormality, ST segment, and/or T wave
[2017-02-12] MEDS: HALFPRIN EC PO SCH (13:49)
[2017-02-12] MEDS: THALITONE PO SCH (13:49)
[2017-02-12] MEDS: K-DUR PO SCH (13:50)
[2017-02-12] MEDS: LOVENOX SUB-Q SCH (13:50)
[2017-02-12] MEDS: ZESTRIL PO SCH (13:59)
--- NOTE | 2017-02-12 13:59 | Progress Note ---
Hospitalist Physical - Constitutional Vitals: Temp Pulse Resp BP Pulse Ox 97.5 F L 76 18 184/110 97 02/12/17 07:20 02/12/17 13:51 02/12/17 07:20 02/12/17 13:51 02/12/17 07:20 General appearance: Present: no acute distress, well-nourished, obese (morbidly obese) Results - Labs CBC & Chem 7: 02/10/17 09:05 02/12/17 06:29 Labs: Laboratory Last Values WBC 7.4 K/mm3 (4.5-11.0) 02/10/17 09:05 RBC 4.42 M/mm3 (3.65-5.03) 02/10/17 09:05 Hgb 14.7 gm/dl (11.8-15.2) 02/10/17 09:05 Hct 43.3 % (35.5-45.6) 02/10/17 09:05 MCV 98 fl (84-94) H 02/10/17 09:05 MCH 33 pg (28-32) H 02/10/17 09:05 MCHC 34 % (32-34) 02/10/17 09:05 RDW 13.2 % (13.2-15.2) 02/10/17 09:05 Plt Count 245 K/mm3 (140-440) 02/10/17 09:05 Lymph % (Auto) 39.9 % (13.4-35.0) H 02/10/17 09:05 Story % (Auto) 9.1 % (0.0-7.3) H 02/10/17 09:05 Eos % (Auto) 1.7 % (0.0-4.3) 02/10/17 09:05 Baso % (Auto) 1.2 % (0.0-1.8) 02/10/17 09:05 Lymph # 3.0 K/mm3 (1.2-5.4) 02/10/17 09:05 Story # 0.7 K/mm3 (0.0-0.8) 02/10/17 09:05 Eos # 0.1 K/mm3 (0.0-0.4) 02/10/17 09:05 Baso # 0.1 K/mm3 (0.0-0.1) 02/10/17 09:05 Seg Neutrophils % 48.1 % (40.0-70.0) 02/10/17 09:05 Seg Neutrophils # 3.6 K/mm3 (1.8-7.7) 02/10/17 09:05 PT 12.7 Sec. (12.2-14.9) 02/10/17 09:05 INR 0.91 (0.87-1.13) 02/10/17 09:05 APTT 25.9 Sec. (24.2-36.6) 02/10/17 09:05 Sodium 143 mmol/L (137-145) 02/12/17 06:29 Potassium 3.9 mmol/L (3.6-5.0) 02/12/17 06:29 Chloride 102.5 mmol/L (98-107) 02/12/17 06:29 Carbon Dioxide 29 mmol/L (22-30) 02/12/17 06:29 Anion Gap 15 mmol/L 02/12/17 06:29 BUN 20 mg/dL (9-20) 02/12/17 06:29 Creatinine 0.8 mg/dL (0.8-1.5) 02/12/17 06:29 Estimated GFR > 60 ml/min 02/12/17 06:29 BUN/Creatinine Ratio 25.00 % 02/12/17 06:29 Glucose 115 mg/dL (75-100) H 02/12/17 06:29 Calcium 9.2 mg/dL (8.4-10.2) 02/12/17 06:29 Magnesium 1.80 mg/dL (1.7-2.3) 02/10/17 10:38 Total Bilirubin 1.30 mg/dL (0.1-1.2) H 02/12/17 06:29 AST 27 units/L (5-40) 02/12/17 06:29 ALT 38 units/L (7-56) 02/12/17 06:29 Alkaline Phosphatase 104 units/L (35-129) 02/12/17 06:29 Total Creatine Kinase 124 units/L (55-170) 02/10/17 12:19 CK-MB (CK-2) 2.9 ng/mL (0.0-4.0) 02/10/17 12:19 CK-MB (CK-2) Rel Index 2.3 (0-4) 02/10/17 12:19 Troponin T < 0.010 ng/mL (0.00-0.029) 02/10/17 12:19 NT-Pro-B Natriuret Pep 302.4 pg/mL (0-900) 02/10/17 09:05 Total Protein 6.7 g/dL (6.3-8.2) 02/12/17 06:29 Albumin 3.3 g/dL (3.9-5) L 02/12/17 06:29 Albumin/Globulin Ratio 1.0 % 02/12/17 06:29 Triglycerides 164 mg/dL (2-149) H 02/11/17 07:04 Cholesterol 232 mg/dL (50-199) H 02/11/17 07:04 LDL Cholesterol Direct 110 mg/dL (50-130) 02/11/17 07:04 HDL Cholesterol 90 mg/dL (40-59) H 02/11/17 07:04 Cholesterol/HDL Ratio 2.57 % 02/11/17 07:04
[2017-02-12 16:28] VITALS: BP 139/93
--- NOTE | 2017-02-12 16:45 | Event Note ---
Date: 02/12/17 Pt s/p lexiscan MPI stress test this AM which showed mild inferior ischemia, diaphragmatic artifact cannot be excluded. Coronary angiogram in AM recommended to pt for definitive diagnosis. Pt declines [facility] at this time and wishes to follow up with [facility]. Recommend ASA 81mg daily. In regards to transient atrial fibrillation and atrial flutter with RVR noted at admission, pt has now converted to SR and has CHADS of 1 and thus systemic anticoagulation is not currently recommended. D/c lovenox BID. Currently stable cardiac status. Pt may discharge home from cardiac standpoint. Recommend follow up with [facility]ology within 1-2 weeks of hospital discharge. Christian ALEXANDER NP / DR. EDMONDS
--- NOTE | 2017-02-12 17:14 | Discharge Summary ---
Providers - Providers Date of Admission: 02/10/17 11:59 Date of discharge: 02/12/17 Attending physician: KWAKU MAHONEY 02/10/17 14:06 Consult to Wound/ET Nurse [CONS] Urgent Reason For Exam: wound eval Primary care physician: [employer] Hospitalization Reason for admission: Worsening shortness of breath and palpitations Condition: Good Pertinent studies: CXR Stress test ECHO Hospital course: Patient was admitted with worsening shortness of breath and palpitations.admitted amnd started on cardizem drip as well as full dose lovenox. Evaluated by cardiology,ECHO 50% EF, and stress test; mild inferior ischemia, advised coronary angiogram which patient refused and wanted to follow at [facility] for further evaluation. Patient converted to sinus rhythm and since his CHADS is one ,no indication for chronic anticoagulation per cardiology and advised asa 81mg daily., Cleared for d/c and f/u with [facility]. at the time of discharge patient is hemodynamically and clinically stable Discharge Diagnosis: --Paroxysmal Afib with RVR,now sinus rhythm --Chronic anticoagulation;CHADS 1 only low dose ASA per cardiology --Accelerated hypertension; stable on meds --Dyslipidemia; lipidlowering medication --Ongoing tobacco use; smoking cessation counseling done, advised nicotine patch --Alcohol abuse; counseling done patient is strongly advised to quit alcohol intake --Morbid obesity; counseling done patient strongly advised dietary modification , exercise as tolerated and weight reduction when medically stable Patient may benefit by outpatient bariatric surgical evaluation for weight reduction program when medically stable Disposition: DC-01 TO HOME OR SELFCARE Time spent for discharge: 32 min Core Measure Documentation - Palliative Care Palliative Care/ Comfort Measures: Not Applicable - Core Measures Any of the following diagnoses?: none Exam - Constitutional Vitals: Temp Pulse Resp BP Pulse Ox 98.5 F 77 20 139/93 96 02/12/17 15:29 02/12/17 15:30 02/12/17 15:29 02/12/17 15:29 02/12/17 15:30 General appearance: Present: no acute distress, well-nourished, obese - EENT Eyes: Present: PERRL, EOM intact - Neck Neck: Present: supple, normal ROM - Respiratory Respiratory effort: normal Respiratory: bilateral: diminished, negative: rales, rhonchi - Cardiovascular Rhythm: regular Heart Sounds: Present: S1 & S2 - Extremities Extremities: no ischemia, No edema - Abdominal General gastrointestinal: Present: soft, non-tender, non-distended, normal bowel sounds - Integumentary Integumentary: Present: clear, warm - Musculoskeletal Musculoskeletal: strength equal bilaterally - Psychiatric Psychiatric: appropriate mood/affect, cooperative - Neurologic Neurologic: CNII-XII intact, moves all extremities Plan Activity: no restrictions Diet: low salt, other (cardiac diet) Additional Instructions: f/u private cardiology/[facility]. If you have Chest pain or shortness of breath contact M.D. or go to emergency room Follow up with: PRIMARY CAREMD [Primary Care Provider] - 3-5 Days AMBERYEE PATTERSON MD [Staff Physician] - 7 Days Prescriptions: Aspirin EC [Aspirin Enteric Coated TAB] 81 mg PO DAILY #30 tablet AtorvaSTATin [Lipitor] 40 mg PO QHS #30 tablet Furosemide [Lasix TAB] 40 mg PO QDAY #30 tablet Lisinopril [Zestril TAB] 20 mg PO BID #60 tablet Metoprolol [Lopressor TAB] 50 mg PO TID #90 tablet Potassium Chloride 10 meq PO QDAY #30 capsule.er
== END 2017-02-12 18:32 | disposition home or self-care (01) | DRG 292 ==
LOC: ED 08:42 → 4A 11:59
PROVIDERS: ADMIT Internal Medicine; ATTEND Internal Medicine
DX: I11.0 Hypertensive heart disease with heart failure (principal); Z68.41 Body mass index [BMI] 40.0-44.9, adult; I48.92 Unspecified atrial flutter; I48.91 Unspecified atrial fibrillation; F10.10 Alcohol abuse, uncomplicated; E66.01 Morbid (severe) obesity due to excess calories; I50.9 Heart failure, unspecified; E78.5 Hyperlipidemia, unspecified; R00.2 Palpitations; F17.200 Nicotine dependence, unspecified, uncomplicated; Z96.643 Presence of artificial hip joint, bilateral; Z71.3 Dietary counseling and surveillance; Z79.82 Long term (current) use of aspirin; Z79.899 Other long term (current) drug therapy; Z82.49 Family history of ischemic heart disease and other diseases of the circulatory system
CPT/HCPCS: 36415; 71020; 78452; 80048; 80053; 80061; 82550; 82553; 83735; 83880; 84484; 85025; 85610; 85730; 93005; 93010; 93017; 93306; 96374; 96375; 99285; A9270-GY; A9502; J0360; J1650; J1940; J2060; J2785

== ENCOUNTER 2017-12-28 00:17 | Emergency (ER) | payer SELFPAY ==
[2017-12-28 00:34] VITALS: BP 154/85
[2017-12-28 01:51] LABS: INR 3.69 (0.87-1.13)
--- NOTE | 2017-12-28 02:09 | Emergency Department Report ---
ED General Adult HPI - General Chief complaint: Eye Problems Stated complaint: LT EYE REDNESS WITH BLEEDING Time Seen by Provider: 12/28/17 01:10 Source: patient Mode of arrival: Ambulatory Limitations: No Limitations - History of Present Illness Initial comments: One day a spontaneous left eye bleeding. Nontraumatic. Vision is preserved. He is on Coumadin. He was started on a week ago after being diagnosed with a PE. It concerned the patient. So, he came to the ER for evaluation. - Related Data Home Medications Medication Instructions Recorded Confirmed Last Taken Allopurinol [Zyloprim] 100 mg PO QDAY 12/28/17 12/28/17 12/28/17 Carvedilol [Coreg] 25 mg PO BID 12/28/17 12/28/17 12/28/17 Warfarin [Coumadin] 10 mg PO QDAY 12/28/17 12/28/17 12/28/17 amLODIPine [Norvasc] 10 mg PO DAILY 12/28/17 12/28/17 12/28/17 Previous Rx's Medication Instructions Recorded Last Taken Type Aspirin EC [Aspirin Enteric Coated 81 mg PO DAILY #30 tablet 02/12/17 12/28/17 Rx TAB] Furosemide [Lasix TAB] 40 mg PO QDAY #30 tablet 02/12/17 12/28/17 Rx Lisinopril [Zestril TAB] 20 mg PO BID #60 tablet 02/12/17 12/28/17 Rx Allergies Allergy/AdvReac Type Severity Reaction Status Date / Time No Known Allergies Allergy Verified 02/10/17 10:28 ED Review of Systems ROS: Stated complaint: LT EYE REDNESS WITH BLEEDING Other details as noted in HPI Comment: All other systems reviewed and negative Eyes: denies: eye pain, eye discharge, vision change ED Past Medical Hx - Past Medical History Previous Medical History?: Yes Hx Hypertension: Yes Additional medical history: blood clots in lung - Surgical History Past Surgical History?: Yes Hx Appendectomy: Yes Additional Surgical History: appendectomy, hilario hip replacement - Social History Smoking Status: Former Smoker Substance Use Type: Alcohol - Medications Home Medications: Home Medications Medication Instructions Recorded Confirmed Last Taken Type Aspirin EC [Aspirin Enteric Coated 81 mg PO DAILY #30 tablet 02/12/17 12/28/17 12/28/17 Rx TAB] Furosemide [Lasix TAB] 40 mg PO QDAY #30 tablet 02/12/17 12/28/17 12/28/17 Rx Lisinopril [Zestril TAB] 20 mg PO BID #60 tablet 02/12/17 12/28/17 12/28/17 Rx Allopurinol [Zyloprim] 100 mg PO QDAY 12/28/17 12/28/17 12/28/17 History Carvedilol [Coreg] 25 mg PO BID 12/28/17 12/28/17 12/28/17 History Warfarin [Coumadin] 10 mg PO QDAY 12/28/17 12/28/17 12/28/17 History amLODIPine [Norvasc] 10 mg PO DAILY 12/28/17 12/28/17 12/28/17 History ED Physical Exam - General Limitations: No Limitations General appearance: alert, in no apparent distress - Head Head exam: Present: atraumatic, normocephalic - Eye Eye exam: Present: normal appearance, PERRL, EOMI, other (left lateral conjunctival hemorrhage) - ENT ENT exam: Present: mucous membranes moist - Neck Neck exam: Present: normal inspection - Respiratory Respiratory exam: Present: normal lung sounds bilaterally. Absent: respiratory distress - Cardiovascular Cardiovascular Exam: Present: regular rate, normal rhythm. Absent: systolic murmur, diastolic murmur, rubs, gallop - GI/Abdominal GI/Abdominal exam: Present: soft, normal bowel sounds. Absent: distended, tenderness, guarding, rebound - Rectal Rectal exam: Present: deferred - Extremities Exam Extremities exam: Present: normal inspection - Back Exam Back exam: Present: normal inspection - Neurological Exam Neurological exam: Present: alert, oriented X3 - Psychiatric Psychiatric exam: Present: normal affect, normal mood - Skin Skin exam: Present: warm, dry, intact, normal color. Absent: rash ED Course Vital Signs 12/28/17 00:18 Temperature 98.8 F Pulse Rate 84 Respiratory 14 Rate Blood Pressure 154/85 O2 Sat by Pulse 95 Oximetry ED Medical Decision Making - Medical Decision Making 57-year-old male with past history of PE on Coumadin that presents to the ER with left lateral conjunctival hemorrhage. Vital signs are stable. Patient is well-appearing. Visual acuity is preserved. INR is 3.7. He is on a regimen of Coumadin when he takes 10 mg one day followed by 50 mg the next day. This alternates throughout the week. I have instructed him to hold his Sunday Coumadin dose. On Sunday, he will take 5 mg. On Sunday, he'll take 10 mg. On Sunday, he has an appointment with the Coumadin clinic to get his INR rechecked. I've explained the return precautions to the patient. He feels got her going home. Clear to discharge. - Differential Diagnosis acute closure glaucoma, viral conjunctivitis, conjunctival hemorrhage, retr Critical care attestation.: If time is entered above; I have spent that time in minutes in the direct care of this critically ill patient, excluding procedure time. ED Disposition Clinical Impression: Conjunctival hemorrhage, left eye, Supratherapeutic INR Disposition: TO HOME OR SELFCARE Is pt being admited?: No Does the pt Need Aspirin: No Condition: Stable Additional Instructions: Do not take any Coumadin on Sunday. Take 5 mg Coumadin on Sunday. Take 10 mg Coumadin on Sunday. Follow-up with the Coumadin clinic on Sunday for recheck of the INR. Today it was 3.7. If your eye worsens or there is anything that concerns you, please return to the ER for reevaluation. Referrals: PRIMARY CARE, [Primary Care Provider] - 3-5 Days
== END 2017-12-28 02:49 | disposition home or self-care (01) ==
LOC: ED 00:17
DX: H11.32 Conjunctival hemorrhage, left eye (principal); I10 Essential (primary) hypertension; Z87.891 Personal history of nicotine dependence; Z90.89 Acquired absence of other organs; Z96.643 Presence of artificial hip joint, bilateral; Z79.01 Long term (current) use of anticoagulants
CPT/HCPCS: 36415; 85610; 99283

== ENCOUNTER 2018-12-16 10:06 | Outpatient (CLI) | payer OTHER ==
[2018-12-16] MEDS ORDERED: AD OINTMENT TP SCH (11:00)
[2018-12-16] MEDS ORDERED: XYLOCAINE TOPICAL 4% TP ONE (11:00)
== END 2018-12-16 10:07 | disposition home or self-care (01) ==
LOC: WOUND 10:06
PROVIDERS: ATTEND Surgery
DX: L97.812 Non-pressure chronic ulcer of other part of right lower leg with fat layer exposed (principal); I87.2 Venous insufficiency (chronic) (peripheral); I10 Essential (primary) hypertension; F41.9 Anxiety disorder, unspecified; F17.200 Nicotine dependence, unspecified, uncomplicated; Z86.711 Personal history of pulmonary embolism; Z96.643 Presence of artificial hip joint, bilateral
CPT/HCPCS: 11042; G0463; 99204; 99214; A6250

== ENCOUNTER 2019-01-20 10:12 | Outpatient (CLI) | payer OTHER ==
[2019-01-20] MEDS ORDERED: AD OINTMENT TP PRN (10:44)
== END 2019-01-20 10:13 | disposition home or self-care (01) ==
LOC: WOUND 10:12
PROVIDERS: ATTEND Surgery
DX: L97.812 Non-pressure chronic ulcer of other part of right lower leg with fat layer exposed (principal); I87.2 Venous insufficiency (chronic) (peripheral); I10 Essential (primary) hypertension; F41.9 Anxiety disorder, unspecified; F17.200 Nicotine dependence, unspecified, uncomplicated; Z86.711 Personal history of pulmonary embolism; Z96.643 Presence of artificial hip joint, bilateral
CPT/HCPCS: 99213; A6250; G0463

== ENCOUNTER 2019-06-23 09:41 | Outpatient (CLI) | payer OTHER ==
[2019-06-23] MEDS ORDERED: LIDOCAINE (4%) 40 MG/ML TOPICAL SOLN 50 ML BOTTLE TP ONE (11:06)
[2019-06-23] MEDS ORDERED: VITAMIN A & D OINT 56.7 GM TP SCH (12:00)
== END 2019-06-23 09:42 | disposition home or self-care (01) ==
LOC: WOUND 09:41
PROVIDERS: ATTEND Surgery
DX: I87.313 Chronic venous hypertension (idiopathic) with ulcer of bilateral lower extremity (principal); I70.248 Atherosclerosis of native arteries of left leg with ulceration of other part of lower leg; L97.822 Non-pressure chronic ulcer of other part of left lower leg with fat layer exposed; I70.238 Atherosclerosis of native arteries of right leg with ulceration of other part of lower leg; L97.812 Non-pressure chronic ulcer of other part of right lower leg with fat layer exposed; I10 Essential (primary) hypertension; F41.9 Anxiety disorder, unspecified; F17.200 Nicotine dependence, unspecified, uncomplicated; Z86.711 Personal history of pulmonary embolism; Z96.643 Presence of artificial hip joint, bilateral
CPT/HCPCS: 11042; 11045; G0463; 99215; A6250

== ENCOUNTER 2019-07-07 08:59 | Outpatient (CLI) | payer OTHER ==
[2019-07-07] MEDS ORDERED: LIDOCAINE (4%) 40 MG/ML TOPICAL SOLN 50 ML BOTTLE TP ONE (10:00)
[2019-07-07] MEDS ORDERED: VITAMIN A & D OINT 56.7 GM TP SCH (10:00)
== END 2019-07-07 09:00 | disposition home or self-care (01) ==
LOC: WOUND 08:59
PROVIDERS: ATTEND Surgery
DX: I87.313 Chronic venous hypertension (idiopathic) with ulcer of bilateral lower extremity (principal); I70.248 Atherosclerosis of native arteries of left leg with ulceration of other part of lower leg; L97.821 Non-pressure chronic ulcer of other part of left lower leg limited to breakdown of skin; I70.238 Atherosclerosis of native arteries of right leg with ulceration of other part of lower leg; L97.811 Non-pressure chronic ulcer of other part of right lower leg limited to breakdown of skin; I10 Essential (primary) hypertension; F41.9 Anxiety disorder, unspecified; F17.200 Nicotine dependence, unspecified, uncomplicated; Z86.711 Personal history of pulmonary embolism; Z96.643 Presence of artificial hip joint, bilateral
CPT/HCPCS: 99214; A6250; G0463

== ENCOUNTER 2019-08-16 22:29 | Emergency (ER) | payer OTHER ==
[2019-08-16] MEDS ORDERED: TETANUS,DIPH,PERTUSS(ACELL) VACCINE 0.5 ML SYRINGE IM ONE (23:07)
[2019-08-16] MEDS ORDERED: LIDOCAINE (1%) 10 MG/1 ML VIAL 20 ML MDV INFILTRATI ONE (23:33)
[2019-08-16] MEDS ORDERED: ACETAMINOPHEN 500 MG TAB PO ONE (23:33)
--- NOTE | 2019-08-17 00:07 | Cat Scan Report ---
CT head/brain wo con INDICATION / CLINICAL INFORMATION: head injury. TECHNIQUE: All CT scans at this location are performed using CT dose reduction for ALARA by means of automated e xposure control. COMPARISON: None available. FINDINGS: No acute intracranial hemorrhage or abnormal extra-axial fluid collection. The ventricular system and basilar cisterns are normal. No evidence of mass effect. There is an 8 mm triangular radiopaque soft tissue density to the left of the midline in the low fron jerry region. There is a associated subcutaneous gas suggesting this may be a foreign body. The bony calvarium is intact and no visualized sinus disease. IMPRESSION: 1. No acute intracranial abnormality. 2. Suspected low left frontal soft tissue foreign body. Signer Name: Louis Phillips MD Signed: 08/17/2019 12:02 AM Workstation Name: [id number]
--- NOTE | 2019-08-17 00:09 | Cat Scan Report ---
CT cervical spine wo con INDICATION / CLINICAL INFORMATION: head injury. TECHNIQUE: All CT scans at this location are performed using CT dose reduction for ALARA by means of automated e xposure control. COMPARISON: None available. FINDINGS: Mild to moderate hypertrophic degenerative changes are seen throughout the cervical spine. Cervical disc narrowing at C3 for-C5 and C6-C7. No evidence of fracture. Bony alignment is well maintained. IMPRESSION: 1. No evidence of fracture or subluxation. Signer Name: Louis Phillips MD Signed: 08/17/2019 12:04 AM Workstation Name: [id number]
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
[2019-08-17 07:00] VITALS: BP 114/72
== END 2019-08-17 03:50 | disposition home or self-care (01) ==
LOC: ED 22:29
DX: S01.01XA Laceration without foreign body of scalp, initial encounter (principal); S10.93XA Contusion of unspecified part of neck, initial encounter; Z90.49 Acquired absence of other specified parts of digestive tract; Z98.890 Other specified postprocedural states; Z79.82 Long term (current) use of aspirin; Z79.899 Other long term (current) drug therapy; Y04.2XXA Assault by strike against or bumped into by another person, initial encounter; Y93.89 Activity, other specified; Y92.89 Other specified places as the place of occurrence of the external cause; Y99.8 Other external cause status
CPT/HCPCS: 70450; 72125; 90471; 90715

== ENCOUNTER 2019-08-20 15:53 | Emergency (ER) | payer OTHER ==
--- NOTE | 2019-08-20 17:08 | Cat Scan Report ---
CT HEAD WITHOUT CONTRAST INDICATION / CLINICAL INFORMATION: Head injury, MURRAY, iatrogenic coagulopathy with patient on Warfarin. TECHNIQUE: All CT scans at this location are performed using CT dose reduction for ALARA by means of automated e xposure control. COMPARISON: Head CT 08/16/2019 and 04/04/2012. FINDINGS: HEMORRHAGE: No evidence of intracranial hemorrhage or extra-axial fluid collection. EXTRA-AXIAL SPACES: Cortical sulci, sylvian fissures and basilar cisterns have an unremarkable appear ance. VENTRICULAR SYSTEM: The ventricular system is of normal size and configuration. CEREBRAL PARENCHYMA: No areas of abnormal brain parenchymal attenuation are identified. There is no i ndication of recent infarction. MIDLINE SHIFT OR HERNIATION: There is no mass effect. CEREBELLUM / BRAINSTEM: Brainstem and cerebellum have an unremarkable appearance. INTRACRANIAL VESSELS:No abnormalities are identified on this noncontrast head CT. ORBITS: visualized portions of the orbits have an unremarkable appearance. SOFT TISSUES of HEAD: 4-scalp hematoma is decreased in size in comparison to recent previous study 08/16/2019. There is been interval removal of a radiopaque foreign body from the region of the left side of the nose just above the medial canthus. There is a punctate less than 2 mm diameter a residual rad iopacity in this location consistent with a small retained foreign body. CALVARIUM: Evaluation of bone windows reveals no abnormalities. PARANASAL SINUSES / MASTOID AIR CELLS: Paranasal sinuses are free from inflammatory mucosal disease. Mastoid air cells are normally pneumatized. ADDITIONAL FINDINGS: None. IMPRESSION: 1. Interval decrease of forehead scalp hematoma. 2. Status post removal of foreign body from the left side of the nose just above the left medial cant hus. There is a tiny residual radiopacity which may represent a tiny residual foreign body in this lo cation. 3. No acute intracranial abnormality. Signer Name: Omid Conrad MD Signed: 08/20/2019 5:04 PM Workstation Name: [id number]
[2019-08-20] MEDS ORDERED: ASPIRIN 325 MG TAB PO ONE (18:59)
--- NOTE | 2019-08-20 19:34 | XRay Report ---
CHEST 2 VIEWS INDICATION / CLINICAL INFORMATION: Chest Pain. COMPARISON: 02/10/17. FINDINGS: SUPPORT DEVICES: None. HEART / MEDIASTINUM: The heart size is borderline. Pulmonary vasculature is normal. The aorta is norm al in caliber. LUNGS / PLEURA: No significant pulmonary or pleural abnormality. No pneumothorax. ADDITIONAL FINDINGS: No significant additional findings. IMPRESSION: No acute findings. Signer Name: Zach Clark MD Signed: 08/20/2019 7:29 PM Workstation Name: [id number]
[2019-08-20 20:41] LABS: Basophils # (Auto) 0.2 K/mm3 (0.0-0.1); Basophils % (Auto) 2.3 % (0.0-1.8); Eosinophils # (Auto) 0.1 K/mm3 (0.0-0.4); Eosinophils % (Auto) 0.9 % (0.0-4.3); Hematocrit 42.7 % (35.5-45.6); Hemoglobin 14.3 gm/dl (11.8-15.2); Lymphocytes # (Auto) 2.1 K/mm3 (1.2-5.4); Lymphocytes % (Auto) 26.9 % (13.4-35.0); Mean Corpuscular HGB Conc 34 % (32-34); Mean Corpuscular Volume 101 fl (84-94); Monocytes # (Auto) 0.7 K/mm3 (0.0-0.8); Monocytes % (Auto) 8.6 % (0.0-7.3); Platelet Count 211 K/mm3 (140-440); Red Blood Count 4.22 M/mm3 (3.65-5.03); Red Cell Distribution Width 13.4 % (13.2-15.2)
[2019-08-20 20:51] LABS: BUN/Creatinine Ratio 18; Blood Urea Nitrogen 16 mg/dL (9-20); Calcium 9.3 mg/dL (8.4-10.2); Hemolysis Index 7
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
[2019-08-20] MEDS ORDERED: cloNIDine 0.2 MG TAB PO ONE (22:38)
[2019-08-20] MEDS ORDERED: ACETAMINOPHEN 500 MG TAB PO ONE (22:38)
[2019-08-20 22:43] LABS: INR 3.01 (0.87-1.13); Partial Thromboplastin Time 51.2 Sec. (24.2-36.6)
[2019-08-21] MEDS ORDERED: hydrALAZINE 20 MG/1 ML INJ ONE (00:10)
[2019-08-21] MEDS ORDERED: hydrALAZINE 20 MG/1 ML INJ IV ONE (00:17)
[2019-08-21 00:23] VITALS: BP 189/123
== END 2019-08-21 00:37 | disposition left against medical advice (07) ==
LOC: ED 15:53
DX: S01.01XD Laceration without foreign body of scalp, subsequent encounter (principal); S00.83XD Contusion of other part of head, subsequent encounter; R42 Dizziness and giddiness; X58.XXXD Exposure to other specified factors, subsequent encounter
CPT/HCPCS: 36415; 70450; 71046; 80048; 84484; 85025; 85610; 85730; 93005; 93010; 99285; J0360

== ENCOUNTER 2019-08-27 15:58 | Emergency (ER) | payer OTHER ==
[2019-08-27 16:06] VITALS: BP 165/89
--- NOTE | 2019-08-27 16:07 | Emergency Department Report ---
Suture/Staple Removal - [facility] Chief Complaint: Laceration/Recheck/Suture Stated Complaint: SUTURES REMOVAL Time Seen by Provider: 08/27/19 16:04 When Sutures or Jesús Placed: 8-10 Days Ago Wound Location: forehead ED Review of Systems ROS: Stated complaint: SUTURES REMOVAL Other details as noted in HPI Comment: All other systems reviewed and negative ED Past Medical Hx - Past Medical History Previous Medical History?: Yes Hx Hypertension: Yes Hx Pulmonary Embolism: Yes Additional medical history: blood clots in lung - Surgical History Past Surgical History?: Yes Hx Appendectomy: Yes Additional Surgical History: Bilatteral hip replacement - Social History Smoking Status: Never Smoker Substance Use Type: None - Medications Home Medications: Home Medications Medication Instructions Recorded Confirmed Last Taken Type Aspirin EC [Halfprin EC] 81 mg PO DAILY #30 tablet 02/12/17 12/28/17 12/28/17 Rx Furosemide [Lasix TAB] 40 mg PO QDAY #30 tablet 02/12/17 12/28/17 12/28/17 Rx lisinopriL [Zestril TAB] 20 mg PO BID #60 tablet 02/12/17 12/28/17 12/28/17 Rx Warfarin [Coumadin] 10 mg PO QDAY 12/28/17 12/28/17 12/28/17 History allopurinoL [Zyloprim] 100 mg PO QDAY 12/28/17 12/28/17 12/28/17 History amLODIPine [Norvasc] 10 mg PO DAILY 12/28/17 12/28/17 12/28/17 History carvediloL [Coreg] 25 mg PO BID 12/28/17 12/28/17 12/28/17 History Acetaminophen [Tylenol] 500 mg PO Q6HR PRN #24 tablet 08/17/19 Unknown Rx cephALEXin [Keflex] 500 mg PO Q8HR #30 cap 08/17/19 Unknown Rx Suture Removal Exam - Exam General: Vital signs noted. No distress. Alert and acting appropriately. Wound: No Pathologic Erythema, No Tenderness, No Drainage, No Pus, No Wound Dehiscence Other Systems: All other systems reviewed and are unremarkable. ED Recheck MDM - Medical Decision Making 59-year-old male presents with suture removal to his forehead that was placed here 10 days ago. Patient reports taking medication as prescribed. Sutures were taken out without any problems. Patient had no complications. Discussed Neosporin application 3 times a day until healed. Discussed to follow-up with primary care physician. Vital signs are normal, although blood pressure little elevated patient has not taken his blood pressure medication today. States he will take when he gets home, no symptoms noted. Patient is in no acute distress Critical care attestation.: If time is entered above; I have spent that time in minutes in the direct care of this critically ill patient, excluding procedure time. ED Disposition Clinical Impression: Visit for suture removal Disposition: TO HOME OR SELFCARE Is pt being admited?: No Does the pt Need Aspirin: No Condition: Stable Instructions: Acute Wound Care (ED) Additional Instructions: Make sure to follow up with the primary care physician as discussed. Take all your medications as you've been prescribed. If you have any worsening symptoms or develop new symptoms please return to ED immediately. Referrals: [facility] [Outside] - 3-5 Days [facility] [Outside] - 3-5 Days Forms: Work/School Release Form(ED) Time of Disposition: 16:20
== END 2019-08-27 16:48 | disposition home or self-care (01) ==
LOC: ED 15:58
DX: S01.01XD Laceration without foreign body of scalp, subsequent encounter (principal); I10 Essential (primary) hypertension; Z48.02 Encounter for removal of sutures; Z90.49 Acquired absence of other specified parts of digestive tract; Z98.890 Other specified postprocedural states; Z79.899 Other long term (current) drug therapy; X58.XXXD Exposure to other specified factors, subsequent encounter

== ENCOUNTER 2019-12-11 07:56 | Emergency (ER) | payer OTHER ==
[2019-12-11 09:20] LABS: Basophils # (Auto) 0.1 K/mm3 (0.0-0.1); Basophils % (Auto) 0.8 % (0.0-1.8); Eosinophils % (Auto) 0.6 % (0.0-4.3); Hematocrit 46.8 % (35.5-45.6); Hemoglobin 15.7 gm/dl (11.8-15.2); Lymphocytes # (Auto) 1.6 K/mm3 (1.2-5.4); Lymphocytes % (Auto) 23.1 % (13.4-35.0); Mean Corpuscular HGB Conc 34 % (32-34); Mean Corpuscular Volume 101 fl (84-94); Monocytes # (Auto) 0.8 K/mm3 (0.0-0.8); Platelet Count 240 K/mm3 (140-440); Red Blood Count 4.62 M/mm3 (3.65-5.03); Red Cell Distribution Width 13.6 % (13.2-15.2)
[2019-12-11 09:34] LABS: Alanine Aminotransferase 33 units/L (7-56); Albumin 3.3 g/dL (3.9-5); BUN/Creatinine Ratio 15; Blood Urea Nitrogen 16 mg/dL (9-20); Calcium 9.4 mg/dL (8.4-10.2); Hemolysis Index 10
--- NOTE | 2019-12-11 10:32 | Emergency Department Report ---
ED General Adult HPI - General Chief complaint: Abdominal Pain Stated complaint: ALCOHOL POISIONING PUI?: No Time Seen by Provider: 12/11/19 08:40 Source: patient Mode of arrival: Ambulatory Limitations: No Limitations - History of Present Illness Initial comments: This is a 59-year-old female male who presents the ED stating that he feels like he has alcohol poisoning. Patient states about 3 days ago he was drinking alcohol for 2 days straight and think he overdid it. Patient states that he has had a couple of episodes of vomiting and one episode of watery loose stools that is resolved now. He denies fever/chills/shortness of breath - Related Data Home Medications Medication Instructions Recorded Confirmed Last Taken Warfarin [Coumadin] 10 mg PO QDAY 12/28/17 12/28/17 12/28/17 allopurinoL [Zyloprim] 100 mg PO QDAY 12/28/17 12/28/17 12/28/17 amLODIPine [Norvasc] 10 mg PO DAILY 12/28/17 12/28/17 12/28/17 carvediloL [Coreg] 25 mg PO BID 12/28/17 12/28/17 12/28/17 Previous Rx's Medication Instructions Recorded Last Taken Type Aspirin EC [Halfprin EC] 81 mg PO DAILY #30 tablet 02/12/17 12/28/17 Rx Furosemide [Lasix TAB] 40 mg PO QDAY #30 tablet 02/12/17 12/28/17 Rx lisinopriL [Zestril TAB] 20 mg PO BID #60 tablet 02/12/17 12/28/17 Rx Acetaminophen [Tylenol] 500 mg PO Q6HR PRN #24 tablet 08/17/19 Unknown Rx cephALEXin [Keflex] 500 mg PO Q8HR #30 cap 08/17/19 Unknown Rx Allergies Allergy/AdvReac Type Severity Reaction Status Date / Time No Known Allergies Allergy Verified 12/11/19 08:09 ED Review of Systems ROS: Stated complaint: ALCOHOL POISIONING Other details as noted in HPI Comment: All other systems reviewed and negative ED Past Medical Hx - Past Medical History Hx Hypertension: Yes Hx Pulmonary Embolism: Yes Additional medical history: blood clots in lung - Surgical History Hx Appendectomy: Yes Additional Surgical History: Bilatteral hip replacement - Social History Smoking Status: Never Smoker Substance Use Type: Alcohol - Medications Home Medications: Home Medications Medication Instructions Recorded Confirmed Last Taken Type Aspirin EC [Halfprin EC] 81 mg PO DAILY #30 tablet 02/12/17 12/28/17 12/28/17 Rx Furosemide [Lasix TAB] 40 mg PO QDAY #30 tablet 02/12/17 12/28/17 12/28/17 Rx lisinopriL [Zestril TAB] 20 mg PO BID #60 tablet 02/12/17 12/28/17 12/28/17 Rx Warfarin [Coumadin] 10 mg PO QDAY 12/28/17 12/28/17 12/28/17 History allopurinoL [Zyloprim] 100 mg PO QDAY 12/28/17 12/28/17 12/28/17 History amLODIPine [Norvasc] 10 mg PO DAILY 12/28/17 12/28/17 12/28/17 History carvediloL [Coreg] 25 mg PO BID 12/28/17 12/28/17 12/28/17 History Acetaminophen [Tylenol] 500 mg PO Q6HR PRN #24 tablet 08/17/19 Unknown Rx cephALEXin [Keflex] 500 mg PO Q8HR #30 cap 08/17/19 Unknown Rx ED Physical Exam - General Limitations: No Limitations General appearance: alert, in no apparent distress - Head Head exam: Present: atraumatic, normocephalic - Eye Eye exam: Present: normal appearance - ENT ENT exam: Present: mucous membranes moist - Neck Neck exam: Present: normal inspection - Respiratory Respiratory exam: Present: normal lung sounds bilaterally. Absent: respiratory distress, wheezes, rales, chest wall tenderness - Cardiovascular Cardiovascular Exam: Present: regular rate, normal rhythm. Absent: systolic murmur, diastolic murmur, rubs, gallop - GI/Abdominal GI/Abdominal exam: Present: soft, normal bowel sounds. Absent: distended, tenderness, guarding, rebound, mass - Rectal Rectal exam: Present: deferred - Extremities Exam Extremities exam: Present: normal inspection, full ROM - Back Exam Back exam: Present: normal inspection - Neurological Exam Neurological exam: Present: alert, oriented X3 - Psychiatric Psychiatric exam: Present: normal affect, normal mood - Skin Skin exam: Present: warm, dry, intact, normal color. Absent: rash ED Course Vital Signs 12/11/19 12/11/19 12/11/19 08:13 10:09 11:15 Temperature 97.6 F Pulse Rate 80 75 75 Respiratory 18 20 Rate Blood Pressure 148/80 147/93 O2 Sat by Pulse 95 97 97 Oximetry ED Medical Decision Making - Lab Data Result diagrams: 12/11/19 09:01 12/11/19 09:01 Laboratory Last Values WBC 7.0 K/mm3 (4.5-11.0) 12/11/19 09:01 RBC 4.62 M/mm3 (3.65-5.03) 12/11/19 09:01 Hgb 15.7 gm/dl (11.8-15.2) H 12/11/19 09:01 Hct 46.8 % (35.5-45.6) H 12/11/19 09:01 MCV 101 fl (84-94) H 12/11/19 09:01 MCH 34 pg (28-32) H 12/11/19 09:01 MCHC 34 % (32-34) 12/11/19 09:01 RDW 13.6 % (13.2-15.2) 12/11/19 09:01 Plt Count 240 K/mm3 (140-440) 12/11/19 09:01 Lymph % (Auto) 23.1 % (13.4-35.0) 12/11/19 09:01 Coleman % (Auto) 11.0 % (0.0-7.3) H 12/11/19 09:01 Eos % (Auto) 0.6 % (0.0-4.3) 12/11/19 09:01 Baso % (Auto) 0.8 % (0.0-1.8) 12/11/19 09:01 Lymph # 1.6 K/mm3 (1.2-5.4) 12/11/19 09:01 Coleman # 0.8 K/mm3 (0.0-0.8) 12/11/19 09:01 Eos # 0.0 K/mm3 (0.0-0.4) 12/11/19 09:01 Baso # 0.1 K/mm3 (0.0-0.1) 12/11/19 09:01 Seg Neutrophils % 64.5 % (40.0-70.0) 12/11/19 09:01 Seg Neutrophils # 4.5 K/mm3 (1.8-7.7) 12/11/19 09:01 Sodium 132 mmol/L (137-145) L 12/11/19 09:01 Potassium 4.4 mmol/L (3.6-5.0) 12/11/19 09:01 Chloride 91.2 mmol/L (98-107) L 12/11/19 09:01 Carbon Dioxide 29 mmol/L (22-30) 12/11/19 09:01 Anion Gap 16 mmol/L 12/11/19 09:01 BUN 16 mg/dL (9-20) 12/11/19 09:01 Creatinine 1.1 mg/dL (0.8-1.5) 12/11/19 09:01 Estimated GFR > 60 ml/min 12/11/19 09:01 BUN/Creatinine Ratio 15 % 12/11/19 09:01 Glucose 136 mg/dL (75-100) H 12/11/19 09:01 Calcium 9.4 mg/dL (8.4-10.2) 12/11/19 09:01 Total Bilirubin 2.00 mg/dL (0.1-1.2) H 12/11/19 09:01 AST 24 units/L (5-40) 12/11/19 09:01 ALT 33 units/L (7-56) 12/11/19 09:01 Alkaline Phosphatase 98 units/L (35-129) 12/11/19 09:01 Total Protein 7.8 g/dL (6.3-8.2) 12/11/19 09:01 Albumin 3.3 g/dL (3.9-5) L 12/11/19 09:01 Albumin/Globulin Ratio 0.7 % 12/11/19 09:01 Plasma/Serum Alcohol < 0.01 % (0-0.07) 12/11/19 09:01 - Medical Decision Making 59-year-old male who presents to the ED with mild abdominal pain All labs are within normal limits. Serum alcohol level within normal limits. I discussed the patient to continue hydrating like he is been doing with plenty of fluids. Vital signs are normal patient is in no acute distress. I discussed with the patient to follow-up with primary care physician as soon as he can. And no respiratory distress he speaking in clear sentences he will be discharged home to follow-up with primary care physician. Critical care attestation.: If time is entered above; I have spent that time in minutes in the direct care of this critically ill patient, excluding procedure time. ED Disposition Clinical Impression: Alcohol ingestion Disposition: DC-01 TO HOME OR SELFCARE Is pt being admited?: No Does the pt Need Aspirin: No Condition: Stable Instructions: Alcohol Intoxication (ED), Acute Nausea and Vomiting (ED) Additional Instructions: Make sure to follow up with the primary care physician as discussed. Continue to hydrate with Gatorade plenty of fluids. If you have any worsening symptoms or develop new symptoms please return to ED immediately. Referrals: [facility] [Other] - 3-5 Days Forms: Work/School Release Form(ED) Time of Disposition: 10:40
[2019-12-11 11:19] VITALS: BP 147/93
== END 2019-12-11 11:17 | disposition home or self-care (01) ==
LOC: ED 07:56
DX: F10.129 Alcohol abuse with intoxication, unspecified (principal); I10 Essential (primary) hypertension; Z98.890 Other specified postprocedural states; Z79.82 Long term (current) use of aspirin; Z79.01 Long term (current) use of anticoagulants
CPT/HCPCS: 36415; 80053; 80320; 85025; 99282; 99283; G0480

== ENCOUNTER 2020-11-11 15:38 | Emergency (ER) | payer OTHER ==
[2020-11-11] MEDS ORDERED: ASPIRIN 325 MG TAB PO ONE (16:04)
--- NOTE | 2020-11-11 16:35 | XRay Report ---
CHEST 2 VIEWS INDICATION: CP...Left CP/axilla pain since this a.m. . COMPARISON: 08/20/2019 FINDINGS: Support devices: None. Heart: Within normal limits. Lungs/pleura: No acute air space or interstitial disease. No pneumothorax. Additional findings: None. IMPRESSION: No acute findings. Signer Name: Ron Tomas Jr, MD Signed: 11/11/2020 4:30 PM Workstation Name: [id number]
[2020-11-11 17:09] LABS: Basophils # (Auto) 0.1 K/mm3 (0.0-0.1); Basophils % (Auto) 0.8 % (0.0-1.8); Eosinophils # (Auto) 0.1 K/mm3 (0.0-0.4); Hematocrit 39.7 % (35.5-45.6); Hemoglobin 13.5 gm/dl (11.8-15.2); Lymphocytes # (Auto) 1.9 K/mm3 (1.2-5.4); Mean Corpuscular HGB Conc 34 % (32-34); Mean Corpuscular Volume 101 fl (84-94); Monocytes # (Auto) 0.8 K/mm3 (0.0-0.8); Monocytes % (Auto) 11.9 % (0.0-7.3); Platelet Count 193 K/mm3 (140-440); Red Blood Count 3.93 M/mm3 (3.65-5.03); Red Cell Distribution Width 13.2 % (13.2-15.2)
[2020-11-11 17:26] LABS: Alanine Aminotransferase 22 units/L (7-56); Albumin 3.6 g/dL (3.9-5); BUN/Creatinine Ratio 18; Blood Urea Nitrogen 18 mg/dL (9-20); Calcium 9.2 mg/dL (8.4-10.2); Hemolysis Index 8
[2020-11-11 22:14] VITALS: BP 198/94
--- NOTE | 2020-11-13 09:46 | Electrocardiograph Report ---
[facility] Test Date: 2020-11-11 Test Time: 16:09:35 Pat Name: EZ LEONG Department: Room: Gender: M Beet End Supervisor: JOEY : 1960 Requested By: ELLEN SAHU III Order Number: [id number] Reading MD: Toño Bates Measurements Intervals [place] Rate: 63 P: 77 [place]: 204 QRS: -10 QRSD: 142 T: 59 QT: 436 QTc: 446 Interpretive Statements Sinus rhythm Borderline prolonged [place] interval Probable left atrial enlargement IVCD, CONSIDER ATYPICAL LBBB No previous ECG available for comparison Electronically Signed On 11-13-2020 9:46:01 EDT by Toño Bates
== END 2020-11-11 16:05 | disposition left against medical advice (07) ==
LOC: ED 15:38
DX: M79.622 Pain in left upper arm (principal); Z53.21 Procedure and treatment not carried out due to patient leaving prior to being seen by health care provider
CPT/HCPCS: 36415; 71046; 80053; 84484; 85025; 93005

== ENCOUNTER 2020-11-12 01:27 | Emergency (ER) | payer OTHER ==
[2020-11-12 02:05] VITALS: BP 174/88
--- NOTE | 2020-11-12 03:44 | Emergency Department Report ---
ED Chest Pain HPI - General Chief Complaint: Chest Pain Stated Complaint: LT ARM PAIN Time Seen by Provider: 11/12/20 03:30 Source: patient, family Mode of arrival: Ambulatory Limitations: No Limitations - History of Present Illness Initial Comments: Patient is a 60-year-old F [place]ian male who with past medical history of hypertension who is presenting with some pain in the left lateral pectoral muscle just anterior to the axilla. States he woke up yesterday morning with this pain. He states he sleeps in a lounge chair and may have slept awkwardly. Pain is worse with certain movements. He denies any chest heaviness shortness of breath cough cold congestion fevers or chills. Patient was seen earlier today left AGAINST MEDICAL ADVICE but has returned. Severity scale (0 -10): 4 - Related Data Home Medications Medication Instructions Recorded Confirmed Last Taken Warfarin [Coumadin] 10 mg PO QDAY 12/28/17 12/28/17 12/28/17 allopurinoL [Zyloprim] 100 mg PO QDAY 12/28/17 12/28/17 12/28/17 amLODIPine [Norvasc] 10 mg PO DAILY 12/28/17 12/28/17 12/28/17 carvediloL [Coreg] 25 mg PO BID 12/28/17 12/28/17 12/28/17 Previous Rx's Medication Instructions Recorded Last Taken Type Aspirin EC [Halfprin EC] 81 mg PO DAILY #30 tablet 02/12/17 12/28/17 Rx Furosemide [Lasix TAB] 40 mg PO QDAY #30 tablet 02/12/17 12/28/17 Rx lisinopriL [Zestril TAB] 20 mg PO BID #60 tablet 02/12/17 12/28/17 Rx Acetaminophen [Tylenol] 500 mg PO Q6HR PRN #24 tablet 08/17/19 Unknown Rx cephALEXin [Keflex] 500 mg PO Q8HR #30 cap 08/17/19 Unknown Rx Ketorolac [Toradol] 10 mg PO Q6H PRN #10 tablet 11/12/20 Unknown Rx methOCARBAMOL [Robaxin TAB] 500 mg PO Q6H PRN #14 tablet 11/12/20 Unknown Rx Allergies Allergy/AdvReac Type Severity Reaction Status Date / Time No Known Allergies Allergy Verified 12/11/19 08:09 Heart Score - HEART Score History: Slightly suspicious EKG: Normal Age: 45-65 Risk factors: 1-2 risk factors Troponin: < normal limit HEART Score: 2 - EKG Read Time Time EKG Completed: 03:45 EKG Read Time: 03:45 ED Review of Systems ROS: Stated complaint: LT ARM PAIN Other details as noted in HPI Comment: All other systems reviewed and negative ED Past Medical Hx - Past Medical History Previous Medical History?: Yes Hx Hypertension: Yes Hx Pulmonary Embolism: Yes Additional medical history: blood clots in lung - Surgical History Past Surgical History?: Yes Hx Appendectomy: Yes Additional Surgical History: Bilatteral hip replacement - Social History Smoking Status: Never Smoker Substance Use Type: Alcohol - Medications Home Medications: Home Medications Medication Instructions Recorded Confirmed Last Taken Type Aspirin EC [Halfprin EC] 81 mg PO DAILY #30 tablet 02/12/17 12/28/17 12/28/17 Rx Furosemide [Lasix TAB] 40 mg PO QDAY #30 tablet 02/12/17 12/28/17 12/28/17 Rx lisinopriL [Zestril TAB] 20 mg PO BID #60 tablet 02/12/17 12/28/17 12/28/17 Rx Warfarin [Coumadin] 10 mg PO QDAY 12/28/17 12/28/17 12/28/17 History allopurinoL [Zyloprim] 100 mg PO QDAY 12/28/17 12/28/17 12/28/17 History amLODIPine [Norvasc] 10 mg PO DAILY 12/28/17 12/28/17 12/28/17 History carvediloL [Coreg] 25 mg PO BID 12/28/17 12/28/17 12/28/17 History Acetaminophen [Tylenol] 500 mg PO Q6HR PRN #24 tablet 08/17/19 Unknown Rx cephALEXin [Keflex] 500 mg PO Q8HR #30 cap 08/17/19 Unknown Rx Ketorolac [Toradol] 10 mg PO Q6H PRN #10 tablet 11/12/20 Unknown Rx methOCARBAMOL [Robaxin TAB] 500 mg PO Q6H PRN #14 tablet 11/12/20 Unknown Rx ED Physical Exam - General Limitations: No Limitations General appearance: alert, in no apparent distress - Head Head exam: Present: atraumatic, normocephalic - Eye Eye exam: Present: normal appearance - ENT ENT exam: Present: mucous membranes moist - Neck Neck exam: Present: normal inspection - Respiratory Respiratory exam: Present: normal lung sounds bilaterally. Absent: respiratory distress, wheezes, rales, rhonchi - Cardiovascular Cardiovascular Exam: Present: regular rate, normal rhythm. Absent: systolic murmur, diastolic murmur, rubs, gallop - GI/Abdominal GI/Abdominal exam: Present: soft, normal bowel sounds. Absent: distended, tenderness, guarding, rebound - Rectal Rectal exam: Present: deferred - Extremities Exam Extremities exam: Present: normal inspection - Back Exam Back exam: Present: normal inspection - Neurological Exam Neurological exam: Present: alert, oriented X3 - Psychiatric Psychiatric exam: Present: normal affect, normal mood - Skin Skin exam: Present: warm, dry, intact, normal color. Absent: rash - Expanded Skin Exam Expanded 1 - tenderness 2 - tenderness ED Course Vital Signs 11/12/20 02:02 Temperature 98.2 F Pulse Rate 70 Respiratory 16 Rate Blood Pressure 174/88 [Right] O2 Sat by Pulse 100 Oximetry ED Medical Decision Making - Lab Data Patient's visit from 7 1 showed a troponin is negative x2. White count 7.1. Chemistries all within normal limits. Chest x-ray normal - Medical Decision Making Patient with likely muscle strain secondary to sleeping awkwardly in a chair. Troponins negative x2. Did review the EKG from his visit from several hours ago which was within normal limits. Patient is stable for discharge. Give medication for symptomatic relief. Critical care attestation.: If time is entered above; I have spent that time in minutes in the direct care of this critically ill patient, excluding procedure time. ED Disposition Clinical Impression: Acute chest wall pain Disposition: TO HOME OR SELFCARE Is pt being admited?: No Does the pt Need Aspirin: No Condition: Stable Instructions: Chest Wall Pain, [id number] Referrals: HUA BONNER MD [Referring] - 3-5 Days Time of Disposition: 03:48
== END 2020-11-12 04:27 | disposition home or self-care (01) ==
LOC: ED 01:27
DX: R07.89 Other chest pain (principal); I10 Essential (primary) hypertension; Z90.49 Acquired absence of other specified parts of digestive tract; Z98.890 Other specified postprocedural states; Z79.899 Other long term (current) drug therapy
CPT/HCPCS: 99282

== ENCOUNTER 2021-01-14 12:37 | Emergency (ER) | payer OTHER ==
[2021-01-14 13:07] VITALS: BP 132/62
--- NOTE | 2021-01-14 14:20 | Emergency Department Report ---
ED GI Bleed HPI - General Chief complaint: GI Bleed Stated complaint: BLOOD IN STOOL Time Seen by Provider: 01/14/21 13:34 Source: patient Mode of arrival: Ambulatory Limitations: No Limitations - History of Present Illness Initial comments: Patient presents secondary to blood in the stools. Over the last 1 to 2 days, he has noticed blood in stool. He noticed it more when he was wiping. He did not notice blood in the commode or toilet bowl. He has not been bleeding from other sites. He has no hematuria. There is no dysuria. He has had no easy bruising. He noticed that he was leaking a little bit of blood from his rectum and decided to come in. There is no rectal pain or trauma. Patient is anticoagulated on warfarin due to pulmonary embolism. His dose of medication has not recently changed. However, he admits that he has been drinking a lot more alcohol recently and does not know if that might have thinned his blood as well. - Related Data Home Medications Medication Instructions Recorded Confirmed Last Taken Warfarin [Coumadin] 10 mg PO QDAY 12/28/17 12/28/17 12/28/17 allopurinoL [Zyloprim] 100 mg PO QDAY 12/28/17 12/28/17 12/28/17 amLODIPine [Norvasc] 10 mg PO DAILY 12/28/17 12/28/17 12/28/17 carvediloL [Coreg] 25 mg PO BID 12/28/17 12/28/17 12/28/17 Previous Rx's Medication Instructions Recorded Last Taken Type Aspirin EC [Halfprin EC] 81 mg PO DAILY #30 tablet 02/12/17 12/28/17 Rx Furosemide [Lasix TAB] 40 mg PO QDAY #30 tablet 02/12/17 12/28/17 Rx lisinopriL [Zestril TAB] 20 mg PO BID #60 tablet 02/12/17 12/28/17 Rx Acetaminophen [Tylenol] 500 mg PO Q6HR PRN #24 tablet 08/17/19 Unknown Rx cephALEXin [Keflex] 500 mg PO Q8HR #30 cap 08/17/19 Unknown Rx Ketorolac [Toradol] 10 mg PO Q6H PRN #10 tablet 11/12/20 Unknown Rx methOCARBAMOL [Robaxin TAB] 500 mg PO Q6H PRN #14 tablet 11/12/20 Unknown Rx Allergies Allergy/AdvReac Type Severity Reaction Status Date / Time No Known Allergies Allergy Verified 12/11/19 08:09 ED Review of Systems ROS: Stated complaint: BLOOD IN STOOL Other details as noted in HPI Comment: All other systems reviewed and negative Constitutional: denies: fever Eyes: denies: eye discharge ENT: denies: ear pain, throat pain Respiratory: denies: cough Cardiovascular: denies: chest pain Endocrine: denies: increased thirst, increased urine Gastrointestinal: denies: abdominal pain Genitourinary: denies: urgency, hematuria Musculoskeletal: denies: back pain Skin: denies: rash Neurological: denies: weakness Psychiatric: denies: suicidal thoughts ED Past Medical Hx - Past Medical History Previous Medical History?: Yes Hx Hypertension: Yes Hx Pulmonary Embolism: Yes Additional medical history: blood clots in lung - Surgical History Past Surgical History?: Yes Hx Appendectomy: Yes Additional Surgical History: Bilatteral hip replacement - Family History Family history: hypertension - Social History Smoking Status: Never Smoker Substance Use Type: Alcohol - Medications Home Medications: Home Medications Medication Instructions Recorded Confirmed Last Taken Type Aspirin EC [Halfprin EC] 81 mg PO DAILY #30 tablet 02/12/17 12/28/17 12/28/17 Rx Furosemide [Lasix TAB] 40 mg PO QDAY #30 tablet 02/12/17 12/28/17 12/28/17 Rx lisinopriL [Zestril TAB] 20 mg PO BID #60 tablet 02/12/17 12/28/17 12/28/17 Rx Warfarin [Coumadin] 10 mg PO QDAY 12/28/17 12/28/17 12/28/17 History allopurinoL [Zyloprim] 100 mg PO QDAY 12/28/17 12/28/17 12/28/17 History amLODIPine [Norvasc] 10 mg PO DAILY 12/28/17 12/28/17 12/28/17 History carvediloL [Coreg] 25 mg PO BID 12/28/17 12/28/17 12/28/17 History Acetaminophen [Tylenol] 500 mg PO Q6HR PRN #24 tablet 08/17/19 Unknown Rx cephALEXin [Keflex] 500 mg PO Q8HR #30 cap 08/17/19 Unknown Rx Ketorolac [Toradol] 10 mg PO Q6H PRN #10 tablet 11/12/20 Unknown Rx methOCARBAMOL [Robaxin TAB] 500 mg PO Q6H PRN #14 tablet 11/12/20 Unknown Rx ED Physical Exam - General Limitations: No Limitations General appearance: alert, in no apparent distress - Head Head exam: Present: atraumatic, normocephalic - Eye Eye exam: Present: normal appearance, EOMI. Absent: scleral icterus - ENT ENT exam: Present: normal exam, normal orophraynx - Neck Neck exam: Present: normal inspection, full ROM. Absent: meningismus - Respiratory Respiratory exam: Present: normal lung sounds bilaterally, respiratory distress - Cardiovascular Cardiovascular Exam: Present: regular rate, normal rhythm - GI/Abdominal GI/Abdominal exam: Present: soft, other (Obese). Absent: tenderness - Rectal Rectal exam: Present: normal inspection. Absent: hemorrhoids - Extremities Exam Extremities exam: Present: full ROM, normal capillary refill - Back Exam Back exam: Absent: CVA tenderness (R), CVA tenderness (L) - Neurological Exam Neurological exam: Present: alert, oriented X3, normal gait - Psychiatric Psychiatric exam: Present: normal affect, normal mood - Skin Skin exam: Present: warm, dry ED Course Vital Signs 01/14/21 13:06 Temperature 98.1 F Pulse Rate 68 Respiratory 18 Rate Blood Pressure 132/62 O2 Sat by Pulse 95 Oximetry - Reevaluation(s) Reevaluation #1: 01/14/21 14:19 Labs are pending. Reevaluation #2: 01/14/21 15:37 Labs of been noted. Patient was discharged. ED Medical Decision Making - Lab Data Result diagrams: 01/14/21 13:57 01/14/21 13:57 - Medical Decision Making Patient presents with bright red blood per rectum. There is no obvious hemorrhoid. He certainly does not appear to have a coagulopathy related to his warfarin. His level is not supratherapeutic that would need management. He is not anemic. There is no elevated BUN suggestive of an upper GI bleed. He does not have abdominal tenderness suggestive of diverticulitis. Patient does not appear to be septic or toxic. He will be treated symptomatically and referred for outpatient evaluation. Outpatient endoscopy may be beneficial. Critical Care Time: No Critical care attestation.: If time is entered above; I have spent that time in minutes in the direct care of this critically ill patient, excluding procedure time. ED Disposition Clinical Impression: BRBPR (bright red blood per rectum) Disposition: HOME / SELF CARE / HOMELESS Is pt being admited?: No Does the pt Need Aspirin: No Condition: Stable Instructions: Rectal Bleeding Additional Instructions: Drink plenty of water. Stop drinking alcohol. Have a high-fiber diet. Continue home medication. Return for problems. Follow-up with your regular doctor for recheck and repeat evaluation. Forms: Accompanied Note
[2021-01-14 14:26] LABS: Hematocrit 41.9 % (35.5-45.6); Hemoglobin 14.1 gm/dl (11.8-15.2); Mean Corpuscular HGB Conc 34 % (32-34); Mean Corpuscular Volume 101 fl (84-94); Platelet Count 248 K/mm3 (140-440); Red Blood Count 4.15 M/mm3 (3.65-5.03); Red Cell Distribution Width 13.5 % (13.2-15.2)
[2021-01-14 14:46] LABS: INR 0.94 (0.87-1.13)
[2021-01-14 15:19] LABS: Blood Urea Nitrogen 14 mg/dL (9-20); Calcium 9.4 mg/dL (8.4-10.2); Hemolysis Index 48
[2021-01-14 15:22] LABS: BUN/Creatinine Ratio 20
== END 2021-01-14 17:13 | disposition home or self-care (01) ==
LOC: ED 12:37
DX: K62.5 Hemorrhage of anus and rectum (principal); I10 Essential (primary) hypertension; Z90.49 Acquired absence of other specified parts of digestive tract; Z72.89 Other problems related to lifestyle; Z79.82 Long term (current) use of aspirin; Z79.899 Other long term (current) drug therapy
CPT/HCPCS: 36415; 80048; 85027; 85610; 99283

== ENCOUNTER 2021-04-27 14:57 | Emergency (ER) | payer OTHER ==
--- NOTE | 2021-04-27 15:43 | Event Note ---
ED Screening Note Date of service: 04/27/21 Time: 15:41 ED Screening Note: Patient complains of shortness of breath and chest pain starting yesterday He has a history of hypertension and an irregular heartbeat per patient He also states he has had a PE in the past and is currently on Xarelto He admits to bilateral leg swelling, however he states he has intermittent edema of the legs when he is drinking heavy He does admit to being a daily drinker He denies any cough Patient admits to anxiety This initial assessment/diagnostic orders/clinical plan/treatment(s) is/are subject to change based on patients health status, clinical progression and re- assessment by fellow clinical providers in the ED. Further treatment and workup at subsequent clinical providers discretion. Patient/guardian urged not to elope from the ED as their condition may be serious if not clinically assessed and managed. Initial orders include: Labs EKG Chest x-ray dimer
--- NOTE | 2021-04-27 16:05 | XRay Report ---
CHEST 2 VIEWS INDICATION / CLINICAL INFORMATION: chest pain. COMPARISON: 11/11/2020 FINDINGS: SUPPORT DEVICES: None. HEART / MEDIASTINUM: No significant abnormality. LUNGS / PLEURA: No significant pulmonary or pleural abnormality. No pneumothorax. ADDITIONAL FINDINGS: No significant additional findings. IMPRESSION: 1. No acute findings. Signer Name: Hair Suarez MD Signed: 04/27/2021 4:00 PM Workstation Name: [id number]
[2021-04-27] MEDS ORDERED: FUROSEMIDE 40 MG/4 ML INJ IV ONE (16:31)
[2021-04-27 16:33] LABS: Basophils # (Auto) 0.1 K/mm3 (0.0-0.1); Eosinophils # (Auto) 0.1 K/mm3 (0.0-0.4); Eosinophils % (Auto) 0.8 % (0.0-4.3); Hematocrit 44.1 % (35.5-45.6); Hemoglobin 14.1 gm/dl (11.8-15.2); Lymphocytes # (Auto) 1.8 K/mm3 (1.2-5.4); Lymphocytes % (Auto) 24.6 % (13.4-35.0); Mean Corpuscular HGB Conc 32 % (32-34); Mean Corpuscular Volume 100 fl (84-94); Monocytes # (Auto) 0.8 K/mm3 (0.0-0.8); Monocytes % (Auto) 10.9 % (0.0-7.3); Platelet Count 274 K/mm3 (140-440); Red Blood Count 4.39 M/mm3 (3.65-5.03); Red Cell Distribution Width 13.3 % (13.2-15.2)
--- NOTE | 2021-04-27 16:40 | Emergency Department Report ---
ED Shortness of Breath HPI - General Chief Complaint: Chest Pain Stated Complaint: SHORT OF BREATH Time Seen by Provider: 04/27/21 15:34 Source: patient Mode of arrival: Ambulatory Limitations: No Limitations - History of Present Illness Initial Comments: Patient is 60 years old female with history of congestive heart failure. Patient presented to the ER complaining of few days history of shortness of breath with significant orthopnea. Patient stated that he is taking his Lasix. Patient stated that he is not compliant with his diet. Patient denied any chest pain, fever or chills. No nausea or vomiting. MD Complaint: shortness of breath -: days(s) Consistency: intermittent Known History Of: congestive heart failure Treatments Prior to Arrival: none - Related Data Home Medications Medication Instructions Recorded Confirmed Last Taken Warfarin [Coumadin] 10 mg PO QDAY 12/28/17 12/28/17 12/28/17 allopurinoL [Zyloprim] 100 mg PO QDAY 12/28/17 12/28/17 12/28/17 amLODIPine [Norvasc] 10 mg PO DAILY 12/28/17 12/28/17 12/28/17 carvediloL [Coreg] 25 mg PO BID 12/28/17 12/28/17 12/28/17 Previous Rx's Medication Instructions Recorded Last Taken Type Aspirin EC [Halfprin EC] 81 mg PO DAILY #30 tablet 02/12/17 12/28/17 Rx Furosemide [Lasix TAB] 40 mg PO QDAY #30 tablet 02/12/17 12/28/17 Rx lisinopriL [Zestril TAB] 20 mg PO BID #60 tablet 02/12/17 12/28/17 Rx Acetaminophen [Tylenol] 500 mg PO Q6HR PRN #24 tablet 08/17/19 Unknown Rx cephALEXin [Keflex] 500 mg PO Q8HR #30 cap 08/17/19 Unknown Rx Ketorolac [Toradol] 10 mg PO Q6H PRN #10 tablet 11/12/20 Unknown Rx methOCARBAMOL [Robaxin TAB] 500 mg PO Q6H PRN #14 tablet 11/12/20 Unknown Rx Allergies Allergy/AdvReac Type Severity Reaction Status Date / Time No Known Allergies Allergy Verified 04/27/21 15:14 ED Review of Systems ROS: Stated complaint: SHORT OF BREATH Other details as noted in HPI Comment: All other systems reviewed and negative Constitutional: denies: chills, fever Respiratory: shortness of breath, SOB with exertion. denies: cough, wheezing Cardiovascular: denies: chest pain, palpitations, dyspnea on exertion Gastrointestinal: denies: abdominal pain, nausea, vomiting, diarrhea, constipation, hematemesis, melena, hematochezia Musculoskeletal: denies: back pain Neurological: denies: headache, weakness, numbness, paresthesias, confusion, abnormal gait ED Past Medical Hx - Past Medical History Hx Hypertension: Yes Hx Pulmonary Embolism: Yes Additional medical history: blood clots in lung - Surgical History Hx Appendectomy: Yes Additional Surgical History: Bilatteral hip replacement - Social History Smoking Status: Never Smoker Substance Use Type: Alcohol - Medications Home Medications: Home Medications Medication Instructions Recorded Confirmed Last Taken Type Aspirin EC [Halfprin EC] 81 mg PO DAILY #30 tablet 02/12/17 12/28/17 12/28/17 Rx Furosemide [Lasix TAB] 40 mg PO QDAY #30 tablet 02/12/17 12/28/17 12/28/17 Rx lisinopriL [Zestril TAB] 20 mg PO BID #60 tablet 02/12/17 12/28/17 12/28/17 Rx Warfarin [Coumadin] 10 mg PO QDAY 12/28/17 12/28/17 12/28/17 History allopurinoL [Zyloprim] 100 mg PO QDAY 12/28/17 12/28/17 12/28/17 History amLODIPine [Norvasc] 10 mg PO DAILY 12/28/17 12/28/17 12/28/17 History carvediloL [Coreg] 25 mg PO BID 12/28/17 12/28/17 12/28/17 History Acetaminophen [Tylenol] 500 mg PO Q6HR PRN #24 tablet 08/17/19 Unknown Rx cephALEXin [Keflex] 500 mg PO Q8HR #30 cap 08/17/19 Unknown Rx Ketorolac [Toradol] 10 mg PO Q6H PRN #10 tablet 11/12/20 Unknown Rx methOCARBAMOL [Robaxin TAB] 500 mg PO Q6H PRN #14 tablet 11/12/20 Unknown Rx ED Physical Exam - General Limitations: No Limitations General appearance: alert, in no apparent distress - Head Head exam: Present: atraumatic, normocephalic, normal inspection - Eye Eye exam: Present: normal appearance, PERRL - ENT ENT exam: Present: normal exam, normal orophraynx, mucous membranes moist - Neck Neck exam: Present: normal inspection, full ROM. Absent: tenderness, meningismus - Respiratory Respiratory exam: Present: normal lung sounds bilaterally - Cardiovascular Cardiovascular Exam: Present: regular rate, normal rhythm, normal heart sounds - GI/Abdominal GI/Abdominal exam: Present: soft, normal bowel sounds. Absent: distended, tenderness, guarding, rebound, rigid, mass, bruit, pulsatile mass, hernia - Extremities Exam Extremities exam: Present: pedal edema - Back Exam Back exam: Present: normal inspection, full ROM. Absent: CVA tenderness (R), CVA tenderness (L) - Neurological Exam Neurological exam: Present: alert, oriented X3, CN II-XII intact - Psychiatric Psychiatric exam: Present: normal mood - Skin Skin exam: Present: warm, intact, normal color ED Course Vital Signs 04/27/21 04/27/21 15:12 19:50 Temperature 98.3 F Pulse Rate 78 82 Respiratory 14 17 Rate Blood Pressure 193/98 182/94 [Left] O2 Sat by Pulse 96 95 Oximetry ED Medical Decision Making - Lab Data Result diagrams: 04/27/21 16:09 04/27/21 16:09 - EKG Data -: EKG Interpreted by Tn EKG shows normal: sinus rhythm Rate: normal - EKG Data Interpretation: no acute changes - Radiology Data Radiology results: report reviewed - Medical Decision Making Patient is 60 years old female with history of congestive heart failure. Patient presented to the ER complaining of few days history of shortness of breath with significant orthopnea. Patient stated that he is taking his Lasix. Patient stated that he is not compliant with his diet. Patient denied any chest pain, fever or chills. No nausea or vomiting. EKG is unremarkable. Labs reviewed and showed elevated D-dimer however CTA chest is negative for PE or any other pathology. BNP slightly elevated. Patient received Lasix in the ER. Patient stated that he is feeling much better. Patient advised to be compliant with his diet as he indicated that he is eating a lot of red meat and drink alcohol. Patient advised to follow-up with his primary doctor in the next 2 to 3 days and to return to the ER if he develop any new symptoms. Critical care attestation.: If time is entered above; I have spent that time in minutes in the direct care of this critically ill patient, excluding procedure time. ED Disposition Clinical Impression: Acute chest pain, Acute exacerbation of CHF (congestive heart failure), Chronic alcoholism Disposition: HOME / SELF CARE / HOMELESS Is pt being admited?: No Condition: Stable Instructions: Chest Pain (ED), Nonspecific Chest Pain, Adult Referrals: PRIMARY CARE, [Primary Care Provider] - 3-5 Days
[2021-04-27 16:41] LABS: INR 1.09 (0.87-1.13)
[2021-04-27 16:42] LABS: Partial Thromboplastin Time 33.1 Sec. (24.2-36.6)
[2021-04-27 16:58] LABS: Alanine Aminotransferase 14 units/L (7-56); Albumin 3.5 g/dL (3.9-5); BUN/Creatinine Ratio 16; Blood Urea Nitrogen 14 mg/dL (9-20); Calcium 9.1 mg/dL (8.4-10.2); Hemolysis Index 10
[2021-04-27] MEDS ORDERED: FUROSEMIDE 20 MG TAB PO ONE (17:08)
--- NOTE | 2021-04-27 21:34 | Cat Scan Report ---
CT angio chest INDICATION / CLINICAL INFORMATION: CHEST PAIN WITH SOB. TECHNIQUE: Axial CT images were obtained through the chest after injection of 100 cc of Omnipaque 350 IV contrast. 3 plane MIP and/or 3D reconstructions were produced. All CT scans at this location are performed using CT dose reduction for ALARA by means of automated exposure control. COMPARISON: Same day chest radiograph FINDINGS: PULMONARY ARTERIES: No central or segmental pulmonary embolus. THORACIC AORTA: Calcified atherosclerotic plaque is noted throughout the nonaneurysmal thoracic aorta and major braches, to include the coronary arteries. HEART: Mild cardiac enlargement. No pericardial effusion. LYMPHADENOPATHY: No significant thoracic lymphadenopathy. LUNGS/PLEURA: No acute airspace disease. No pleural effusion or pneumothorax. OTHER FINDINGS: None. UPPER ABDOMEN: No acute findings. SKELETAL SYSTEM: No acute osseous findings. IMPRESSION: No acute findings in the chest. No evidence of pulmonary embolism. Signer Name: Heber Davenport MD Signed: 04/27/2021 9:29 PM Workstation Name: [id number]
[2021-04-27 21:54] VITALS: BP 184/99
--- NOTE | 2021-04-28 10:33 | Electrocardiograph Report ---
[facility] Test Date: 2021-04-27 Test Time: 15:28:37 Pat Name: EZ LEONG Department: Room: Gender: M Chief Technician: VICTORINA : 1960 Requested By: EYAL TORREZ Order Number: [id number] Reading MD: Toño Bates Measurements Intervals [place] Rate: 77 P: 70 [place]: 178 QRS: 28 QRSD: 146 T: -86 QT: 433 QTc: 492 Interpretive Statements Sinus rhythm Probable left atrial enlargement LBBB Compared to ECG 11/11/2020 16:09:35 ST (T wave) deviation now present Electronically Signed On 04-28-2021 10:33:32 EST by Toño Bates
== END 2021-04-27 21:54 | disposition home or self-care (01) ==
LOC: ED 14:57
DX: I11.0 Hypertensive heart disease with heart failure (principal); I50.9 Heart failure, unspecified; F10.20 Alcohol dependence, uncomplicated; Z90.49 Acquired absence of other specified parts of digestive tract; Z86.711 Personal history of pulmonary embolism; Z79.82 Long term (current) use of aspirin; Z79.899 Other long term (current) drug therapy; Z79.01 Long term (current) use of anticoagulants; Y90.0 Blood alcohol level of less than 20 mg/100 ml
CPT/HCPCS: 36415; 71046; 71275; 80053; 83880; 84484; 85025; 85379; 85610; 85730; 93005; 99284; Q9967